=== PATIENT | female | born 1955 | race Caucasian/White ===

== ENCOUNTER → 2018-07-18 | Outpatient (CLI) | payer OTHER, MEDICARE ==
[~2018-07-18] MED LIST: AEC81 PO; ASPI-1146 PO; ATOR-2 PO; CARV12.511 PO; CLOP75TA32 PO; FAMO20TA8 PO; IOHEXOL-300 50 ML VIAL IV ONE; IOHEXOL-350 75 ML VIAL IV ONE; ISOS20TA7 PO; LEVO125T95 PO; LOSA1TAB7 PO; SOLI10TA PO
== END | disposition home or self-care (01) ==
LOC: RAH 09:35
PROVIDERS: ATTEND Internal Medicine Cardiovascular Disease
DX: K57.30 Diverticulosis of large intestine without perforation or abscess without bleeding (principal); N28.1 Cyst of kidney, acquired
CPT/HCPCS: 75635; Q9967 ×2

== ENCOUNTER 2019-05-03 10:49 | Emergency (ER) | payer OTHER, MEDICARE ==
[~2019-05-03 10:49] MED LIST changes: -IOHEXOL-300 50 ML VIAL IV ONE; -IOHEXOL-350 75 ML VIAL IV ONE
[2019-05-03] MEDS ORDERED: SUCRALFATE 1 GM TABLET ONE (13:30)
== END 2019-05-03 14:07 | disposition home or self-care (01) ==
LOC: EDH 10:49
DX: J44.9 Chronic obstructive pulmonary disease, unspecified (principal); I25.810 Atherosclerosis of coronary artery bypass graft(s) without angina pectoris; I10 Essential (primary) hypertension; E78.00 Pure hypercholesterolemia, unspecified; Z86.73 Personal history of transient ischemic attack (TIA), and cerebral infarction without residual deficits; Z90.49 Acquired absence of other specified parts of digestive tract; Z90.710 Acquired absence of both cervix and uterus; Z91.041 Radiographic dye allergy status; Z88.5 Allergy status to narcotic agent; Z88.8 Allergy status to other drugs, medicaments and biological substances
CPT/HCPCS: 71045; 78582; 84484; 93005; 99285; A9540; A9558

== ENCOUNTER 2020-08-04 11:08 | Observation (INO) | payer OTHER, MEDICARE ==
[~2020-08-04] VITALS: Ht 152.4 cm; Wt 93.0 kg
[~2020-08-04 11:08] MED LIST changes: -ISOS20TA7 PO; +ISOS20TA85 PO
[2020-08-04 11:48] LABS: BASOPHILS % (AUTO) 0.7 % (0.0-5.0); EOSINOPHILS % (AUTO) 1.9 % (0.0-8.0); HEMATOCRIT 41.4 % (36-48); LYMPHOCYTES % (AUTO) 27.6 % (21.0-51.0); MEAN CORPUSCULAR HEMOGLOBIN 28.6 pg (27.0-33.0); MEAN CORPUSCULAR HGB CONC 32.9 g/dL (32.0-36.0); MEAN CORPUSCULAR VOLUME 87.2 fL (79-99); MONOCYTES % (AUTO) 5.3 % (3.0-13.0); NEUTROPHILS % (AUTO) 64.1 % (40.0-77.0); PLATELET COUNT (AUTO) 192 K/uL (130-400); RED BLOOD CELL COUNT(AUTO) 4.75 MIL/uL (4.00-5.50); RED CELL DISTRIBUTION WIDTH 15.5 % (11.0-15.5); WHITE BLOOD COUNT (AUTO) 9.6 K/uL (4.8-10.8)
[2020-08-04 11:52] LABS: CREATININE 0.9 mg/dL (0.5-1.5); POTASSIUM 3.4 mmol/L (3.5-5.1)
[2020-08-04 11:56] LABS: BILIRUBIN,TOTAL 0.6 mg/dL (0.2-1.0); MAGNESIUM 1.2 mg/dL (1.80-2.40); TOTAL PROTEIN, SERUM 7.9 g/dL (6.0-8.3)
[2020-08-04] MEDS ORDERED: SODIUM CHLORIDE 0.9% 10 ML VIAL IVP SCH (12:00)
[2020-08-04] MEDS ORDERED: POTASSIUM CHLORIDE 20MEQ/100ML 100 ML IV PRN ×2 (12:00→12:30)
[2020-08-04] MEDS ORDERED: LIDOCAINE HCL-MPF 1% 2ML VIAL IJ PRN (12:00)
[2020-08-04] MEDS ORDERED: POTASSIUM CHLORIDE 10% ELIXIR 20 MEQ/15 ML UDCUP PO PRN (12:00)
[2020-08-04] MEDS ORDERED: GLUCAGON 1MG KIT 1 MG ML IM PRN (12:00)
[2020-08-04] MEDS ORDERED: DEXTROSE 50%-WATER 50 ML DISP.SYRIN IV PRN (12:00)
[2020-08-04 12:01] LABS: INR 1.02 (0.85-1.15); PROTHROMBIN TIME 11.1 SEC (9.6-11.6)
[2020-08-04 12:03] LABS: PARTIAL THROMBOPLASTIN TIME 27.1 SEC (26.3-35.5)
[2020-08-04] MEDS ORDERED: MAGNESIUM 2GM PREMIX 50ML 50 ML IV PRN (12:30)
[2020-08-04 12:41] LABS: B-TYPE NATRIURETIC PEPTIDE 23 pg/mL (0-100)
[2020-08-04 13:00] LABS: HEMOGLOBIN A1C 6.1 % (4.0-6.0)
[2020-08-04] MEDS ORDERED: MAGNESIUM 2GM PREMIX 50ML 50 ML IV ONE (13:53)
[2020-08-04] MEDS: INSULIN R PO SSI SQ SCH ×2 (16:30→20:15)
[2020-08-04 16:55] VITALS: BP 136/83
[2020-08-04] MEDS ORDERED: PANT40TA PO (18:31)
[2020-08-04] MEDS ORDERED: LORA10TA7 PO (18:31)
[2020-08-04] MEDS ORDERED: TIZA-194 PO (18:31)
[2020-08-04] MEDS ORDERED: ASCO500C18 PO (18:31)
[2020-08-04] MEDS ORDERED: LISI10TA24 PO (18:31)
[2020-08-04] MEDS ORDERED: ISOS30TA92 PO (18:31)
[2020-08-04] MEDS ORDERED: CYAN-35 PO (18:31)
[2020-08-04] MEDS ORDERED: NITR0.4T50 SL (18:31)
[2020-08-04] MEDS ORDERED: LEVO112C4 PO (18:31)
[2020-08-04] MEDS ORDERED: METF-444 PO (18:31)
[2020-08-04 18:35] LABS: CREATININE 0.9 mg/dL (0.5-1.5); MAGNESIUM 2.1 mg/dL (1.80-2.40); POTASSIUM 3.3 mmol/L (3.5-5.1)
[2020-08-04 19:56] VITALS: BP 124/79
[2020-08-04] MEDS: POTASSIUM CHLORIDE 20 MEQ ERTAB PO PRN ×2 (20:16→23:47)
[2020-08-04] MEDS: ATORVASTATIN CALCIUM 40 MG TABLET PO SCH (20:16)
[2020-08-04] MEDS: METOPROLOL TARTRATE 25 MG TAB PO SCH ×2 (20:16→20:39)
[2020-08-04 23:52] VITALS: BP 125/67
[2020-08-05] VITALS (7 sets, daily range): BP systolic 114–152; BP diastolic 81–101
[2020-08-05] MEDS: INSULIN R PO SSI SQ SCH ×4 (05:34→21:00)
[2020-08-05 05:40] LABS: BASOPHILS % (AUTO) 0.8 % (0.0-5.0); EOSINOPHILS % (AUTO) 2.2 % (0.0-8.0); HEMATOCRIT 39.8 % (36-48); LYMPHOCYTES % (AUTO) 34.4 % (21.0-51.0); MEAN CORPUSCULAR HEMOGLOBIN 28.3 pg (27.0-33.0); MEAN CORPUSCULAR HGB CONC 32.2 g/dL (32.0-36.0); MEAN CORPUSCULAR VOLUME 88.1 fL (79-99); MONOCYTES % (AUTO) 5.5 % (3.0-13.0); NEUTROPHILS % (AUTO) 56.6 % (40.0-77.0); PLATELET COUNT (AUTO) 172 K/uL (130-400); RED BLOOD CELL COUNT(AUTO) 4.52 MIL/uL (4.00-5.50); RED CELL DISTRIBUTION WIDTH 15.7 % (11.0-15.5); WHITE BLOOD COUNT (AUTO) 8.8 K/uL (4.8-10.8)
[2020-08-05] MEDS: LEVOTHYROXINE 112 MCG TABLET PO SCH (05:40)
[2020-08-05 06:03] LABS: CREATININE 0.9 mg/dL (0.5-1.5); MAGNESIUM 1.9 mg/dL (1.80-2.40); POTASSIUM 3.7 mmol/L (3.5-5.1)
[2020-08-05] MEDS: ASPIRIN 81 MG EC TAB PO SCH (08:55)
[2020-08-05] MEDS: PANTOPRAZOLE SODIUM 40 MG TABLET.DR PO SCH (08:55)
[2020-08-05] MEDS: METOPROLOL TARTRATE 25 MG TAB PO SCH ×2 (08:55→21:10)
[2020-08-05] MEDS: SOLIFENACIN SUCCINATE 10 MG PO SCH (08:58)
[2020-08-05] MEDS ORDERED: SOLIFENACIN SUCCINATE 10 MG PO SCH (09:00)
[2020-08-05] MEDS ORDERED: PREDNISONE 20 MG TABLET PO SCH (21:00)
[2020-08-05] MEDS: ATORVASTATIN CALCIUM 40 MG TABLET PO SCH (21:10)
[2020-08-06 01:26] VITALS: BP 156/88
[2020-08-06] MEDS: LEVOTHYROXINE 112 MCG TABLET PO SCH (04:25)
[2020-08-06] MEDS: INSULIN R PO SSI SQ SCH ×4 (05:55→20:17)
[2020-08-06] MEDS ORDERED: DiphenhydrAMINE HCL 50 MG/ML VIAL IV SCH (06:00)
[2020-08-06] MEDS ORDERED: METHYLPREDNISOLONE SOD SUCC 125MG/2ML VIAL IVP SCH (06:00)
[2020-08-06 06:07] VITALS: BP 141/85
[2020-08-06 08:12] VITALS: BP 135/87
[2020-08-06] MEDS: ASPIRIN 81 MG EC TAB PO SCH (08:41)
[2020-08-06] MEDS: PANTOPRAZOLE SODIUM 40 MG TABLET.DR PO SCH (08:41)
[2020-08-06] MEDS: METOPROLOL TARTRATE 25 MG TAB PO SCH ×2 (08:41→20:10)
[2020-08-06] MEDS: SOLIFENACIN SUCCINATE 10 MG PO SCH (08:42)
[2020-08-06] MEDS ORDERED: LIDOCAINE HCL 2% 20ML ONE (08:43)
[2020-08-06] MEDS ORDERED: SODIUM BICARB 50MEQ 50ML VIAL 50 ML ONE (08:43)
[2020-08-06 08:46] LABS: BASOPHILS % (AUTO) 0.2 % (0.0-5.0); EOSINOPHILS % (AUTO) 0.1 % (0.0-8.0); HEMATOCRIT 43.9 % (36-48); LYMPHOCYTES % (AUTO) 13.8 % (21.0-51.0); MEAN CORPUSCULAR HEMOGLOBIN 27.8 pg (27.0-33.0); MEAN CORPUSCULAR HGB CONC 32.3 g/dL (32.0-36.0); MEAN CORPUSCULAR VOLUME 85.9 fL (79-99); MONOCYTES % (AUTO) 0.5 % (3.0-13.0); NEUTROPHILS % (AUTO) 84.6 % (40.0-77.0); PLATELET COUNT (AUTO) 205 K/uL (130-400); RED BLOOD CELL COUNT(AUTO) 5.11 MIL/uL (4.00-5.50); RED CELL DISTRIBUTION WIDTH 15.3 % (11.0-15.5); WHITE BLOOD COUNT (AUTO) 10.4 K/uL (4.8-10.8)
[2020-08-06 08:59] LABS: CREATININE 0.8 mg/dL (0.5-1.5); POTASSIUM 4.2 mmol/L (3.5-5.1)
[2020-08-06] MEDS ORDERED: IOHEXOL-350 50ML VIAL IV ONE ×2 (08:59→10:31)
[2020-08-06] MEDS ORDERED: IOHEXOL 350 MG/ML 100ML INFUS..BTL IV ONE ×3 (08:59→10:58)
[2020-08-06 09:04] LABS: ALBUMIN 2.9 g/dL (3.5-5.0); BILIRUBIN,TOTAL 0.5 mg/dL (0.2-1.0); TOTAL PROTEIN, SERUM 8.3 g/dL (6.0-8.3)
[2020-08-06] MEDS ORDERED: MIDAZOLAM HCL 1 MG/ML 2ML VIAL ONE (09:17)
[2020-08-06] MEDS ORDERED: FENTANYL CITRATE PF 50 MCG/1 ML 2ML VIAL ONE (09:17)
[2020-08-06] MEDS ORDERED: LABETALOL HCL 5 MG/ML 20ML VIAL IV ONE (09:42)
[2020-08-06] MEDS ORDERED: BIVALIRUDIN 250 MG/VIAL IV ONE ×2 (09:52→10:42)
[2020-08-06] MEDS ORDERED: DEXTROSE 50%-WATER 50 ML DISP.SYRIN IV PRN (12:15)
[2020-08-06] MEDS ORDERED: SODIUM CHLORIDE 0.9% 1000ML 1,000 ML IV SCH (12:15)
[2020-08-06] MEDS ORDERED: GLUCAGON 1MG KIT 1 MG ML IM PRN (12:15)
[2020-08-06] MEDS ORDERED: RANO500T3 PO (12:24)
[2020-08-06 16:24] VITALS: BP 148/84
[2020-08-06 19:52] VITALS: BP 150/86
[2020-08-06] MEDS: ATORVASTATIN CALCIUM 40 MG TABLET PO SCH (20:10)
[2020-08-07 00:23] VITALS: BP 169/81
[2020-08-07 03:42] VITALS: BP 139/66
[2020-08-07] MEDS ORDERED: MORPHINE SULFATE 5 MG/ML VIAL IV PRN (04:45)
[2020-08-07] MEDS ORDERED: MORPHINE SULFATE 2 MG/ML 1ML SYG IV PRN (05:45)
[2020-08-07 05:47] LABS: HEMATOCRIT 38.8 % (36-48); MEAN CORPUSCULAR HGB CONC 32.7 g/dL (32.0-36.0); MEAN CORPUSCULAR VOLUME 85.7 fL (79-99); RED BLOOD CELL COUNT(AUTO) 4.53 MIL/uL (4.00-5.50); RED CELL DISTRIBUTION WIDTH 15.2 % (11.0-15.5); WHITE BLOOD COUNT (AUTO) 18.9 K/uL (4.8-10.8)
[2020-08-07] MEDS: INSULIN R PO SSI SQ SCH ×2 (06:24→11:30)
[2020-08-07] MEDS: LEVOTHYROXINE 112 MCG TABLET PO SCH (06:27)
[2020-08-07 06:34] LABS: CREATININE 0.9 mg/dL (0.5-1.5); POTASSIUM 3.8 mmol/L (3.5-5.1)
[2020-08-07 08:00] VITALS: BP 145/77
[2020-08-07] MEDS: SOLIFENACIN SUCCINATE 10 MG PO SCH (09:00)
[2020-08-07] MEDS: ASPIRIN 81 MG EC TAB PO SCH (09:30)
[2020-08-07] MEDS: PANTOPRAZOLE SODIUM 40 MG TABLET.DR PO SCH (09:30)
[2020-08-07] MEDS: METOPROLOL TARTRATE 25 MG TAB PO SCH (09:31)
[2020-08-07] MEDS ORDERED: CEFTRIAXONE SODIUM 1 GM IVP SCH (11:30)
[2020-08-07 12:00] VITALS: BP 145/96
== END 2020-08-07 14:00 | disposition home or self-care (01) ==
LOC: EDH 11:08 → INTOOBSV 11:09 → EDHIP 11:09 → 4BH 14:39
PROVIDERS: ADMIT Internal Medicine; ATTEND Internal Medicine
DX: I25.119 Atherosclerotic heart disease of native coronary artery with unspecified angina pectoris (principal); I77.1 Stricture of artery; R42 Dizziness and giddiness; E87.6 Hypokalemia; E83.42 Hypomagnesemia; I10 Essential (primary) hypertension; E03.9 Hypothyroidism, unspecified; E78.5 Hyperlipidemia, unspecified; G89.29 Other chronic pain; M54.9 Dorsalgia, unspecified; I95.9 Hypotension, unspecified; J44.9 Chronic obstructive pulmonary disease, unspecified; E66.9 Obesity, unspecified; E78.00 Pure hypercholesterolemia, unspecified; G47.30 Sleep apnea, unspecified; Z86.73 Personal history of transient ischemic attack (TIA), and cerebral infarction without residual deficits; Z95.1 Presence of aortocoronary bypass graft; Z95.5 Presence of coronary angioplasty implant and graft; Z79.82 Long term (current) use of aspirin; Z79.899 Other long term (current) drug therapy; Z91.041 Radiographic dye allergy status; Z68.41 Body mass index [BMI] 40.0-44.9, adult
CPT/HCPCS: 36415 ×4; 71045; 80048 ×2; 80053 ×2; 82948 ×12; 83036; 83735 ×3; 83880; 84443; 84484 ×3; 85025 ×3; 85027; 85610; 85730; 92920; 93005; 93306; 93356; 93459; 96361; 96372; 96374; 96375 ×2; 99285; C1760; C1769 ×6; C1887 ×9; C1894 ×3; G0378 ×70; J0583 ×2; J0696; J1200; J1644 ×2; J1815; J2250; J2930; J3010; J3475; J3490 ×3; Q9965 ×3; Q9967 ×4; 99156; 99157

== ENCOUNTER 2020-08-13 21:05 | Emergency (ER) | payer OTHER, MEDICARE ==
[~2020-08-13 21:05] MED LIST changes: +ASCO500C18 PO; -ASPI-1146 PO; -CLOP75TA32 PO; +CYAN-35 PO; -FAMO20TA8 PO; -ISOS20TA85 PO; +ISOS30TA92 PO; +LEVO112C4 PO; -LEVO125T95 PO; +LISI10TA24 PO; +LORA10TA7 PO; -LOSA1TAB7 PO; +METF-444 PO; +NITR0.4T50 SL; +PANT40TA PO; +TIZA-194 PO
[2020-08-13 21:13] LABS: BASOPHILS % (AUTO) 0.9 % (0.0-5.0); EOSINOPHILS % (AUTO) 2.1 % (0.0-8.0); HEMATOCRIT 37.7 % (36-48); MEAN CORPUSCULAR HGB CONC 32.4 g/dL (32.0-36.0); MEAN CORPUSCULAR VOLUME 86.5 fL (79-99); NEUTROPHILS % (AUTO) 58.5 % (40.0-77.0); PLATELET COUNT (AUTO) 214 K/uL (130-400); RED BLOOD CELL COUNT(AUTO) 4.36 MIL/uL (4.00-5.50); RED CELL DISTRIBUTION WIDTH 15.7 % (11.0-15.5); WHITE BLOOD COUNT (AUTO) 11.2 K/uL (4.8-10.8)
[2020-08-13] MEDS ORDERED: ASPIRIN 325 MG TABLET ONE (21:32)
[2020-08-13 21:33] LABS: POTASSIUM 3.9 mmol/L (3.5-5.1)
[2020-08-13 21:34] LABS: INR 1.05 (0.85-1.15); PROTHROMBIN TIME 11.4 SEC (9.6-11.6)
[2020-08-13 21:36] LABS: PARTIAL THROMBOPLASTIN TIME 25.7 SEC (26.3-35.5)
[2020-08-13 21:38] LABS: BILIRUBIN,TOTAL 0.6 mg/dL (0.2-1.0); TOTAL PROTEIN, SERUM 7.4 g/dL (6.0-8.3)
== END 2020-08-14 00:56 | disposition home or self-care (01) ==
LOC: EDH 21:05
DX: R06.00 Dyspnea, unspecified (principal); R06.09 Other forms of dyspnea; I25.10 Atherosclerotic heart disease of native coronary artery without angina pectoris; Z20.822 Contact with and (suspected) exposure to COVID-19; J44.9 Chronic obstructive pulmonary disease, unspecified; E78.00 Pure hypercholesterolemia, unspecified; I10 Essential (primary) hypertension; E03.9 Hypothyroidism, unspecified; Z90.49 Acquired absence of other specified parts of digestive tract; Z90.710 Acquired absence of both cervix and uterus; Z88.5 Allergy status to narcotic agent; Z91.041 Radiographic dye allergy status; Z88.6 Allergy status to analgesic agent; Z88.2 Allergy status to sulfonamides
CPT/HCPCS: 36415; 71045; 80053; 83690; 83880; 84484; 85025; 85610; 85730; 87426; 93005; 99285; U0003

== ENCOUNTER 2020-08-15 16:43 | Inpatient (IN) | payer OTHER, MEDICARE ==
[~2020-08-15] VITALS: Ht 152.4 cm; Wt 90.8 kg
[2020-08-15] MEDS ORDERED: NITROGLYCERIN 1GM OINT 1 INCH/1GM TD ONE (17:18)
[2020-08-15 19:34] LABS: BASOPHILS % (AUTO) 0.8 % (0.0-5.0); EOSINOPHILS % (AUTO) 1.6 % (0.0-8.0); HEMATOCRIT 38.5 % (36-48); LYMPHOCYTES % (AUTO) 29.9 % (21.0-51.0); MEAN CORPUSCULAR HEMOGLOBIN 28.6 pg (27.0-33.0); MEAN CORPUSCULAR HGB CONC 33.2 g/dL (32.0-36.0); MEAN CORPUSCULAR VOLUME 85.9 fL (79-99); MONOCYTES % (AUTO) 6.3 % (3.0-13.0); PLATELET COUNT (AUTO) 254 K/uL (130-400); RED BLOOD CELL COUNT(AUTO) 4.48 MIL/uL (4.00-5.50); WHITE BLOOD COUNT (AUTO) 11.6 K/uL (4.8-10.8)
[2020-08-15 19:47] LABS: CREATININE 0.9 mg/dL (0.5-1.5); INR 1.08 (0.85-1.15); POTASSIUM 3.7 mmol/L (3.5-5.1); PROTHROMBIN TIME 11.7 SEC (9.6-11.6)
[2020-08-15 19:49] LABS: PARTIAL THROMBOPLASTIN TIME 25.1 SEC (26.3-35.5)
[2020-08-15 19:51] LABS: BILIRUBIN,TOTAL 0.5 mg/dL (0.2-1.0); TOTAL PROTEIN, SERUM 7.6 g/dL (6.0-8.3)
[2020-08-15] MEDS ORDERED: LACTATED RINGERS 1000ML 1,000 ML IV SCH (22:00)
[2020-08-15] MEDS ORDERED: MAG/ALUM/SIMETH 30 ML UDCUP PO PRN (22:00)
[2020-08-15] MEDS ORDERED: LABETALOL 20MG SYG IV PRN (22:00)
[2020-08-15] MEDS ORDERED: ONDANSETRON 4MG INJ IV PRN (22:00)
[2020-08-15] MEDS ORDERED: DIPHENHYDRAMINE HCL 25 MG CAPSULE PO PRN (22:00)
[2020-08-15] MEDS ORDERED: GUAIFENESIN-DM 200/20 MG 10 ML PO PRN (22:00)
[2020-08-15] MEDS ORDERED: DiphenhydrAMINE HCL 50 MG/ML VIAL IV PRN (22:00)
[2020-08-15] MEDS ORDERED: NITROGLYCERIN 0.4 MG SL TAB SL PRN (22:00)
[2020-08-15 23:06] LABS: MAGNESIUM 1.5 mg/dL (1.80-2.40); PHOSPHORUS 2.4 mg/dL (2.5-4.9)
[2020-08-16] MEDS ORDERED: LACTATED RINGERS 1000ML 1,000 ML IV ONE (01:21)
[2020-08-16 01:56] LABS: CREATINE KINASE, TOTAL 73 U/L (21-232); MYOGLOBIN 34 ng/mL (10-92); TROPONIN I < 0.04 ng/mL (0.00-0.06)
[2020-08-16 06:14] LABS: BASOPHILS % (AUTO) 0.9 % (0.0-5.0); EOSINOPHILS % (AUTO) 1.6 % (0.0-8.0); HEMATOCRIT 36.1 % (36-48); LYMPHOCYTES % (AUTO) 32.3 % (21.0-51.0); MEAN CORPUSCULAR HEMOGLOBIN 28.4 pg (27.0-33.0); MEAN CORPUSCULAR VOLUME 86.2 fL (79-99); MONOCYTES % (AUTO) 6.9 % (3.0-13.0); NEUTROPHILS % (AUTO) 57.8 % (40.0-77.0); PLATELET COUNT (AUTO) 223 K/uL (130-400); RED BLOOD CELL COUNT(AUTO) 4.19 MIL/uL (4.00-5.50); RED CELL DISTRIBUTION WIDTH 15.9 % (11.0-15.5); WHITE BLOOD COUNT (AUTO) 9.5 K/uL (4.8-10.8)
[2020-08-16 06:29] LABS: ALBUMIN 2.8 g/dL (3.5-5.0); BILIRUBIN,TOTAL 0.5 mg/dL (0.2-1.0); CREATININE 0.8 mg/dL (0.5-1.5); POTASSIUM 3.6 mmol/L (3.5-5.1); TOTAL PROTEIN, SERUM 6.9 g/dL (6.0-8.3)
[2020-08-16] MEDS ORDERED: LEVOTHYROXINE 125 MCG TABLET PO SCH (06:30)
[2020-08-16 07:44] LABS: CREATINE KINASE, TOTAL 52 U/L (21-232); MYOGLOBIN 32 ng/mL (10-92); TROPONIN I < 0.04 ng/mL (0.00-0.06)
[2020-08-16] MEDS ORDERED: ASPIRIN 325 MG TABLET ONE (07:49)
[2020-08-16] MEDS ORDERED: ISOSORBIDE MONO 30MG SR TAB PO ONE (07:49)
[2020-08-16] MEDS ORDERED: LISINOPRIL 5 MG TABLET ONE (07:49)
[2020-08-16] MEDS ORDERED: CARVEDILOL 12.5 MG TABLET PO ONE (07:50)
[2020-08-16] MEDS ORDERED: ENOXAPARIN SODIUM 40 MG/0.4 ML SYRINGE SQ ONE (07:50)
[2020-08-16] MEDS ORDERED: FAMOTIDINE 20MG VIAL IV ONE (07:51)
[2020-08-16] MEDS ORDERED: MAGNESIUM 2GM PREMIX 50ML 50 ML IV PRN (08:00)
[2020-08-16] MEDS ORDERED: MAGNESIUM 2GM PREMIX 50ML 50 ML IV ONE (08:41)
[2020-08-16] MEDS: ENOXAPARIN SODIUM 40 MG/0.4 ML SYRINGE SQ SCH (09:00)
[2020-08-16] MEDS: RANOLAZINE 500 MG TAB.SR.12H PO SCH ×2 (09:00→21:54)
[2020-08-16] MEDS: CARVEDILOL 12.5 MG TABLET PO SCH ×2 (09:00→21:55)
[2020-08-16] MEDS ORDERED: FAMOTIDINE 20MG VIAL IV SCH (09:00)
[2020-08-16] MEDS: LISINOPRIL 10 MG TABLET PO SCH (09:00)
[2020-08-16] MEDS: ISOSORBIDE MONO 30MG SR TAB PO SCH (09:00)
[2020-08-16] MEDS ORDERED: ASPIRIN 325 MG TABLET PO SCH (09:00)
[2020-08-16] MEDS ORDERED: NITROGLYCERIN 0.4 MG SL TAB SL SCH (10:45)
[2020-08-16] MEDS ORDERED: PRASUGREL HCL 10 MG TABLET PO SCH (10:45)
[2020-08-16] MEDS ORDERED: TIZANIDINE HCL 2 MG TABLET PO PRN (10:45)
[2020-08-16] MEDS ORDERED: SOLU-MEDROL 125MG VIAL IVP PRN (10:45)
[2020-08-16] MEDS ORDERED: NON-FORMULARY MEDICATION 1 EACH (Atorvastatin Calcium 80 MG) PO SCH (10:45)
[2020-08-16] MEDS ORDERED: 0.9% NACL 500ML IV.SOLN 500 ML IV SCH (10:45)
[2020-08-16 11:03] LABS: INR 1.07 (0.85-1.15); PROTHROMBIN TIME 11.6 SEC (9.6-11.6)
[2020-08-16 11:04] LABS: PARTIAL THROMBOPLASTIN TIME 26.8 SEC (26.3-35.5)
[2020-08-16 13:10] VITALS: BP 105/67
[2020-08-16 17:45] VITALS: BP 134/78
[2020-08-16 20:34] VITALS: BP 130/79
[2020-08-16] MEDS ORDERED: CARVEDILOL 12.5 MG TABLET PO SCH (21:00)
[2020-08-16] MEDS: ATORVASTATIN 40 MG TABLET PO SCH (21:54)
[2020-08-16 23:33] VITALS: BP 131/76
[2020-08-17 04:15] VITALS: BP 127/76
[2020-08-17 05:13] LABS: BASOPHILS % (AUTO) 1.3 % (0.0-5.0); EOSINOPHILS % (AUTO) 1.5 % (0.0-8.0); HEMATOCRIT 34.4 % (36-48); LYMPHOCYTES % (AUTO) 36.9 % (21.0-51.0); MEAN CORPUSCULAR HEMOGLOBIN 28.3 pg (27.0-33.0); MEAN CORPUSCULAR HGB CONC 32.8 g/dL (32.0-36.0); MEAN CORPUSCULAR VOLUME 86.2 fL (79-99); MONOCYTES % (AUTO) 7.5 % (3.0-13.0); NEUTROPHILS % (AUTO) 52.5 % (40.0-77.0); PLATELET COUNT (AUTO) 197 K/uL (130-400); RED BLOOD CELL COUNT(AUTO) 3.99 MIL/uL (4.00-5.50); RED CELL DISTRIBUTION WIDTH 15.9 % (11.0-15.5); WHITE BLOOD COUNT (AUTO) 7.2 K/uL (4.8-10.8)
[2020-08-17 05:26] LABS: ALBUMIN 2.6 g/dL (3.5-5.0); BILIRUBIN,TOTAL 0.7 mg/dL (0.2-1.0); CREATININE 0.8 mg/dL (0.5-1.5); POTASSIUM 3.7 mmol/L (3.5-5.1); TOTAL PROTEIN, SERUM 6.5 g/dL (6.0-8.3)
[2020-08-17] MEDS: LEVOTHYROXINE 112 MCG TABLET PO SCH (06:14)
[2020-08-17 08:00] VITALS: BP 121/77
[2020-08-17] MEDS: PRASUGREL HCL 10 MG TABLET PO SCH (08:52)
[2020-08-17] MEDS: PANTOPRAZOLE 40 MG TAB DR PO SCH (08:52)
[2020-08-17] MEDS: CYANOCOBALAMIN (VITAMIN B-12) 1,000 MCG TABLET PO SCH (08:52)
[2020-08-17] MEDS: RANOLAZINE 500 MG TAB.SR.12H PO SCH ×2 (08:54→20:49)
[2020-08-17] MEDS: PREDNISONE 20 MG TABLET PO SCH (08:55)
[2020-08-17] MEDS: CARVEDILOL 12.5 MG TABLET PO SCH ×2 (08:55→20:52)
[2020-08-17] MEDS: ASCORBIC ACID 500 MG TAB PO SCH (08:56)
[2020-08-17] MEDS: LORATADINE 10 MG TABLET PO SCH (08:56)
[2020-08-17] MEDS: ASPIRIN 81 MG EC TAB PO SCH (08:56)
[2020-08-17] MEDS: ISOSORBIDE MONO 30MG SR TAB PO SCH (08:58)
[2020-08-17] MEDS: ENOXAPARIN SODIUM 40 MG/0.4 ML SYRINGE SQ SCH (08:59)
[2020-08-17] MEDS ORDERED: ISOSORBIDE MONO 30MG SR TAB PO SCH (09:00)
[2020-08-17] MEDS ORDERED: LISINOPRIL 10 MG TABLET PO SCH (09:00)
[2020-08-17] MEDS: LISINOPRIL 10 MG TABLET PO SCH (09:01)
[2020-08-17 12:00] VITALS: BP 133/56
[2020-08-17 16:00] VITALS: BP 111/71
[2020-08-17 19:28] VITALS: BP 112/74
[2020-08-17] MEDS: ATORVASTATIN 40 MG TABLET PO SCH (20:48)
[2020-08-17 23:10] VITALS: BP 115/60
[2020-08-18] VITALS (14 sets, daily range): BP systolic 104–155; BP diastolic 60–93
[2020-08-18] MEDS: ACETAMINOPHEN 325 MG TAB PO PRN ×3 (00:55→20:25)
[2020-08-18 05:15] LABS: BASOPHILS % (AUTO) 0.5 % (0.0-5.0); EOSINOPHILS % (AUTO) 0.2 % (0.0-8.0); HEMATOCRIT 34.6 % (36-48); LYMPHOCYTES % (AUTO) 22.6 % (21.0-51.0); MEAN CORPUSCULAR HGB CONC 32.9 g/dL (32.0-36.0); NEUTROPHILS % (AUTO) 69.1 % (40.0-77.0); PLATELET COUNT (AUTO) 213 K/uL (130-400); RED BLOOD CELL COUNT(AUTO) 4.07 MIL/uL (4.00-5.50); RED CELL DISTRIBUTION WIDTH 15.9 % (11.0-15.5); WHITE BLOOD COUNT (AUTO) 10.7 K/uL (4.8-10.8)
[2020-08-18 05:47] LABS: ALBUMIN 2.7 g/dL (3.5-5.0); BILIRUBIN,TOTAL 0.6 mg/dL (0.2-1.0); CREATININE 0.8 mg/dL (0.5-1.5); POTASSIUM 3.2 mmol/L (3.5-5.1); TOTAL PROTEIN, SERUM 6.8 g/dL (6.0-8.3)
[2020-08-18] MEDS: LEVOTHYROXINE 112 MCG TABLET PO SCH (06:21)
[2020-08-18] MEDS ORDERED: NICARDIPINE 25MG INJ IV ONE (07:25)
[2020-08-18] MEDS ORDERED: HEPARIN 10,000 UNIT/10ML (1,000 UNIT/ML) VIAL ONE (07:25)
[2020-08-18] MEDS ORDERED: NITROGLYCERIN 2 MG VIAL IV ONE (07:26)
[2020-08-18] MEDS ORDERED: MIDAZOLAM HCL 1 MG/ML 2ML VIAL ONE (07:26)
[2020-08-18] MEDS ORDERED: FENTANYL CITRATE PF 50 MCG/1 ML 2ML VIAL ONE (07:26)
[2020-08-18] MEDS ORDERED: IOHEXOL-350 75 ML VIAL IV ONE (07:26)
[2020-08-18] MEDS ORDERED: LIDOCAINE HCL 400MG/20ML VIAL ONE (07:26)
[2020-08-18] MEDS ORDERED: IOHEXOL 350 MG/ML 100ML INFUS..BTL IV ONE (07:26)
[2020-08-18] MEDS ORDERED: DiphenhydrAMINE HCL 50 MG/ML VIAL ONE (08:11)
[2020-08-18] MEDS ORDERED: SOLU-MEDROL 125MG VIAL ONE (08:11)
[2020-08-18] MEDS ORDERED: FAMOTIDINE 20MG VIAL IV ONE (08:16)
[2020-08-18] MEDS ORDERED: POTASSIUM CHLORIDE 20MEQ/100ML 100 ML IV ONE (08:17)
[2020-08-18] MEDS ORDERED: ASPIRIN 325MG EC TAB PO ONE (08:53)
[2020-08-18] MEDS ORDERED: PRASUGREL HCL 10 MG TABLET ONE (08:53)
[2020-08-18] MEDS: ASPIRIN 81 MG EC TAB PO SCH (09:00)
[2020-08-18] MEDS: LISINOPRIL 10 MG TABLET PO SCH (09:00)
[2020-08-18] MEDS: PANTOPRAZOLE 40 MG TAB DR PO SCH (09:00)
[2020-08-18] MEDS: LORATADINE 10 MG TABLET PO SCH (09:00)
[2020-08-18] MEDS: ENOXAPARIN SODIUM 40 MG/0.4 ML SYRINGE SQ SCH (09:00)
[2020-08-18] MEDS: PREDNISONE 20 MG TABLET PO SCH (09:00)
[2020-08-18] MEDS: PRASUGREL HCL 10 MG TABLET PO SCH (09:00)
[2020-08-18] MEDS: CYANOCOBALAMIN (VITAMIN B-12) 1,000 MCG TABLET PO SCH (09:00)
[2020-08-18] MEDS ORDERED: HYDRALAZINE 20MG/ML VIAL ONE (09:17)
[2020-08-18] MEDS ORDERED: ONDANSETRON 4MG INJ ONE (10:43)
[2020-08-18] MEDS ORDERED: 0.9%NACL 1000ML 1,000 ML IV SCH (11:00)
[2020-08-18] MEDS: ISOSORBIDE MONO 30MG SR TAB PO SCH (13:15)
[2020-08-18] MEDS: CARVEDILOL 12.5 MG TABLET PO SCH ×2 (13:16→20:23)
[2020-08-18] MEDS: ASCORBIC ACID 500 MG TAB PO SCH (13:18)
[2020-08-18] MEDS: RANOLAZINE 500 MG TAB.SR.12H PO SCH ×2 (13:23→20:23)
[2020-08-18] MEDS: ATORVASTATIN 40 MG TABLET PO SCH (20:22)
[2020-08-19] MEDS ORDERED: KETOROLAC 30MG VIAL (30MG/ML) ONE (02:25)
[2020-08-19 02:55] LABS: HEMATOCRIT 30.1 % (36-48); MEAN CORPUSCULAR HEMOGLOBIN 28.4 pg (27.0-33.0); MEAN CORPUSCULAR HGB CONC 32.6 g/dL (32.0-36.0); MEAN CORPUSCULAR VOLUME 87.2 fL (79-99); RED BLOOD CELL COUNT(AUTO) 3.45 MIL/uL (4.00-5.50); RED CELL DISTRIBUTION WIDTH 16.3 % (11.0-15.5)
[2020-08-19 03:04] LABS: POTASSIUM 3.9 mmol/L (3.5-5.1)
[2020-08-19] MEDS: KETOROLAC 30MG VIAL (30MG/ML) IV SCH (04:01)
[2020-08-19 04:06] VITALS: BP 138/74
[2020-08-19] MEDS ORDERED: HYDROMORPHONE 0.5 MG SYG (0.5MG/0.5ML) ONE (04:16)
[2020-08-19] MEDS: LACTULOSE 20 GM/30 ML UDCUP PO PRN ×2 (04:18→17:23)
[2020-08-19] MEDS: LEVOTHYROXINE 112 MCG TABLET PO SCH (06:52)
[2020-08-19 07:52] VITALS: BP 129/83
[2020-08-19] MEDS: CARVEDILOL 12.5 MG TABLET PO SCH (08:56)
[2020-08-19] MEDS: ASPIRIN 81 MG EC TAB PO SCH (08:56)
[2020-08-19] MEDS: PANTOPRAZOLE 40 MG TAB DR PO SCH (08:57)
[2020-08-19] MEDS: RANOLAZINE 500 MG TAB.SR.12H PO SCH ×2 (08:57→22:16)
[2020-08-19] MEDS: ISOSORBIDE MONO 30MG SR TAB PO SCH (08:57)
[2020-08-19] MEDS: LISINOPRIL 10 MG TABLET PO SCH (08:57)
[2020-08-19] MEDS: ASCORBIC ACID 500 MG TAB PO SCH (08:57)
[2020-08-19] MEDS: LORATADINE 10 MG TABLET PO SCH (08:57)
[2020-08-19] MEDS: PREDNISONE 20 MG TABLET PO SCH (08:57)
[2020-08-19] MEDS: CYANOCOBALAMIN (VITAMIN B-12) 1,000 MCG TABLET PO SCH (08:57)
[2020-08-19] MEDS: PRASUGREL HCL 10 MG TABLET PO SCH (08:57)
[2020-08-19] MEDS: ENOXAPARIN SODIUM 40 MG/0.4 ML SYRINGE SQ SCH (08:58)
[2020-08-19] MEDS: HYDROMORPHONE 2 MG VIAL (2MG/ML) IVP PRN ×2 (10:58→22:17)
[2020-08-19 11:17] VITALS: BP 117/77
[2020-08-19] MEDS ORDERED: KETOROLAC 15MG/ML VIAL (15MG/ML) IV PRN (16:15)
[2020-08-19 16:25] VITALS: BP 137/89
[2020-08-19 20:00] VITALS: BP 115/75
[2020-08-19] MEDS: ATORVASTATIN 40 MG TABLET PO SCH (22:15)
[2020-08-19] MEDS: CEFTRIAXONE 1G VIAL IVP SCH (22:16)
[2020-08-19 23:00] LABS: APPEARANCE,URINE Cloudy (CLEAR); BILIRUBIN,URINE Negative (NEGATIVE); COLOR,URINE Dark Yellow (YELLOW); GLUCOSE, URINE (UA) Negative (NEGATIVE); KETONES,URINE Negative (NEGATIVE); LEUKOCYTE ESTERASE ,URINE Negative (NEGATIVE); NITRATE,URINE Negative (NEGATIVE); OCCULT BLOOD,URINE Negative (NEGATIVE); PROTEIN,URINE Negative (NEGATIVE)
[2020-08-19 23:16] LABS: BACTERIA,URINE Many /HPF (None Seen); HYALINE CASTS, URINE 0-1 /LPF (0-1 /LPF); MUCUS,URINE Few LPF (None Seen); RBC,URINE 0-1 /HPF (0-1); SQUAMOUS EPITHELIAL CELL,UR 0-2 /HPF (0-2)
[2020-08-20] VITALS: BP 110/77
[2020-08-20] MEDS: LACTULOSE 20 GM/30 ML UDCUP PO PRN (00:55)
[2020-08-20 04:00] VITALS: BP 109/74
[2020-08-20 09:09] LABS: BASOPHILS % (AUTO) 0.3 % (0.0-5.0); EOSINOPHILS % (AUTO) 0.1 % (0.0-8.0); HEMATOCRIT 22.8 % (36-48); LYMPHOCYTES % (AUTO) 17.2 % (21.0-51.0); MEAN CORPUSCULAR HEMOGLOBIN 28.7 pg (27.0-33.0); MEAN CORPUSCULAR HGB CONC 32.9 g/dL (32.0-36.0); MEAN CORPUSCULAR VOLUME 87.4 fL (79-99); MONOCYTES % (AUTO) 4.5 % (3.0-13.0); NEUTROPHILS % (AUTO) 77.4 % (40.0-77.0); PLATELET COUNT (AUTO) 202 K/uL (130-400); RED BLOOD CELL COUNT(AUTO) 2.61 MIL/uL (4.00-5.50); RED CELL DISTRIBUTION WIDTH 16.3 % (11.0-15.5); WHITE BLOOD COUNT (AUTO) 14.8 K/uL (4.8-10.8)
[2020-08-20 09:23] LABS: POTASSIUM 3.5 mmol/L (3.5-5.1)
[2020-08-20 09:28] LABS: ALBUMIN 2.6 g/dL (3.5-5.0); BILIRUBIN,TOTAL 0.4 mg/dL (0.2-1.0); TOTAL PROTEIN, SERUM 6.3 g/dL (6.0-8.3)
[2020-08-20] MEDS: ENOXAPARIN SODIUM 40 MG/0.4 ML SYRINGE SQ SCH ×2 (09:54→10:03)
[2020-08-20] MEDS: ASCORBIC ACID 500 MG TAB PO SCH ×2 (09:54→10:01)
[2020-08-20] MEDS: ISOSORBIDE MONO 30MG SR TAB PO SCH ×2 (09:55→10:01)
[2020-08-20] MEDS: ASPIRIN 81 MG EC TAB PO SCH ×2 (09:56→09:59)
[2020-08-20] MEDS: RANOLAZINE 500 MG TAB.SR.12H PO SCH ×2 (09:56→10:01)
[2020-08-20] MEDS: PRASUGREL HCL 10 MG TABLET PO SCH ×2 (09:57→10:00)
[2020-08-20] MEDS: CYANOCOBALAMIN (VITAMIN B-12) 1,000 MCG TABLET PO SCH ×2 (09:57→10:00)
[2020-08-20] MEDS: LORATADINE 10 MG TABLET PO SCH ×2 (09:57→10:01)
[2020-08-20] MEDS: LISINOPRIL 10 MG TABLET PO SCH ×2 (09:58→10:02)
[2020-08-20] MEDS: CARVEDILOL 25 MG TABLET PO SCH ×3 (09:59→21:00)
[2020-08-20] MEDS: LEVOTHYROXINE 112 MCG TABLET PO SCH (10:00)
[2020-08-20] MEDS: CEFTRIAXONE 1G VIAL IVP SCH ×2 (10:03→23:17)
[2020-08-20 12:00] VITALS: BP 91/41
[2020-08-20 16:00] VITALS: BP 96/48
[2020-08-20] MEDS: PANTOPRAZOLE 40 MG TAB DR PO SCH (17:44)
[2020-08-20] MEDS: KETOROLAC 30MG VIAL (30MG/ML) IV SCH ×2 (19:30→23:28)
[2020-08-20 20:00] VITALS: BP 74/40
[2020-08-20 22:00] VITALS: BP 92/45
[2020-08-20] MEDS: ATORVASTATIN 40 MG TABLET PO SCH (23:17)
[2020-08-21] VITALS (13 sets, daily range): BP systolic 97–153; BP diastolic 53–87
[2020-08-21 05:33] LABS: ALBUMIN 2.1 g/dL (3.5-5.0); BILIRUBIN,TOTAL 0.3 mg/dL (0.2-1.0); CREATININE 0.7 mg/dL (0.5-1.5); POTASSIUM 3.4 mmol/L (3.5-5.1); TOTAL PROTEIN, SERUM 5.2 g/dL (6.0-8.3)
[2020-08-21 06:20] LABS: BASOPHILS % (AUTO) 0.3 % (0.0-5.0); EOSINOPHILS % (AUTO) 0.9 % (0.0-8.0); MEAN CORPUSCULAR HEMOGLOBIN 28.1 pg (27.0-33.0); MEAN CORPUSCULAR HGB CONC 32.2 g/dL (32.0-36.0); MEAN CORPUSCULAR VOLUME 87.2 fL (79-99); MONOCYTES % (AUTO) 6.5 % (3.0-13.0); NEUTROPHILS % (AUTO) 58.7 % (40.0-77.0); PLATELET COUNT (AUTO) 138 K/uL (130-400); RED BLOOD CELL COUNT(AUTO) 1.96 MIL/uL (4.00-5.50); RED CELL DISTRIBUTION WIDTH 16.5 % (11.0-15.5); WHITE BLOOD COUNT (AUTO) 9.3 K/uL (4.8-10.8)
[2020-08-21] MEDS: LEVOTHYROXINE 112 MCG TABLET PO SCH (06:33)
[2020-08-21] MEDS: PANTOPRAZOLE 40 MG TAB DR PO SCH (06:33)
[2020-08-21 06:43] LABS: HEMATOCRIT 17.1 % (36-48)
[2020-08-21] MEDS: RANOLAZINE 500 MG TAB.SR.12H PO SCH ×2 (12:14→20:55)
[2020-08-21] MEDS: CARVEDILOL 25 MG TABLET PO SCH (12:14)
[2020-08-21 12:15] LABS: HEMATOCRIT 22.3 % (36-48)
[2020-08-21] MEDS: CEFTRIAXONE 1G VIAL IVP SCH ×2 (12:15→20:40)
[2020-08-21] MEDS: 0.9%NACL 1000ML 1,000 ML IV SCH ×2 (12:50→22:03)
[2020-08-21] MEDS ORDERED: SOLU-MEDROL 125MG VIAL IVP STA (12:53)
[2020-08-21] MEDS ORDERED: IOHEXOL 350 MG/ML 100ML INFUS..BTL IV ONE (13:01)
[2020-08-21] MEDS ORDERED: DiphenhydrAMINE HCL 50 MG/ML VIAL IV SCH (13:53)
[2020-08-21 19:27] LABS: HEMATOCRIT 26.9 % (36-48); MEAN CORPUSCULAR HEMOGLOBIN 29.1 pg (27.0-33.0); MEAN CORPUSCULAR HGB CONC 33.5 g/dL (32.0-36.0); MEAN CORPUSCULAR VOLUME 87.1 fL (79-99); RED BLOOD CELL COUNT(AUTO) 3.09 MIL/uL (4.00-5.50); RED CELL DISTRIBUTION WIDTH 15.3 % (11.0-15.5); WHITE BLOOD COUNT (AUTO) 9.1 K/uL (4.8-10.8)
[2020-08-21 19:45] LABS: INR 1.05 (0.85-1.15); PROTHROMBIN TIME 11.4 SEC (9.6-11.6)
[2020-08-21 19:46] LABS: PARTIAL THROMBOPLASTIN TIME 22.8 SEC (26.3-35.5)
[2020-08-21 20:10] LABS: TROPONIN I 0.13 ng/mL (0.00-0.06)
[2020-08-21] MEDS: ATORVASTATIN 40 MG TABLET PO SCH (20:40)
[2020-08-21] MEDS ORDERED: METOPROLOL TARTRATE 1 MG/ML 5ML VIAL IV PRN (22:00)
[2020-08-22] VITALS (18 sets, daily range): BP systolic 133–169; BP diastolic 50–117
[2020-08-22 00:42] LABS: BASOPHILS % (AUTO) 0.5 % (0.0-5.0); EOSINOPHILS % (AUTO) 1.2 % (0.0-8.0); HEMATOCRIT 24.8 % (36-48); LYMPHOCYTES % (AUTO) 29.1 % (21.0-51.0); MEAN CORPUSCULAR HEMOGLOBIN 29.4 pg (27.0-33.0); MEAN CORPUSCULAR HGB CONC 34.3 g/dL (32.0-36.0); MEAN CORPUSCULAR VOLUME 85.8 fL (79-99); MONOCYTES % (AUTO) 6.7 % (3.0-13.0); NEUTROPHILS % (AUTO) 61.8 % (40.0-77.0); PLATELET COUNT (AUTO) 139 K/uL (130-400); RED BLOOD CELL COUNT(AUTO) 2.89 MIL/uL (4.00-5.50); RED CELL DISTRIBUTION WIDTH 15.1 % (11.0-15.5); WHITE BLOOD COUNT (AUTO) 8.4 K/uL (4.8-10.8)
[2020-08-22 00:55] LABS: INR 1.07 (0.85-1.15); PROTHROMBIN TIME 11.6 SEC (9.6-11.6)
[2020-08-22 00:57] LABS: PARTIAL THROMBOPLASTIN TIME 23.6 SEC (26.3-35.5)
[2020-08-22 01:07] LABS: TROPONIN I 0.18 ng/mL (0.00-0.06)
[2020-08-22] MEDS: PANTOPRAZOLE 40 MG TAB DR PO SCH (06:07)
[2020-08-22] MEDS: LEVOTHYROXINE 112 MCG TABLET PO SCH (06:07)
[2020-08-22 06:28] LABS: HEMATOCRIT 25.5 % (36-48)
[2020-08-22 06:44] LABS: INR 1.07 (0.85-1.15); PROTHROMBIN TIME 11.6 SEC (9.6-11.6)
[2020-08-22 06:46] LABS: PARTIAL THROMBOPLASTIN TIME 24.1 SEC (26.3-35.5)
[2020-08-22 06:59] LABS: ALBUMIN 2.3 g/dL (3.5-5.0); BILIRUBIN,TOTAL 0.5 mg/dL (0.2-1.0); CREATININE 0.5 mg/dL (0.5-1.5); POTASSIUM 3.3 mmol/L (3.5-5.1); TOTAL PROTEIN, SERUM 5.7 g/dL (6.0-8.3); TROPONIN I 0.25 ng/mL (0.00-0.06)
[2020-08-22] MEDS: CYANOCOBALAMIN (VITAMIN B-12) 1,000 MCG TABLET PO SCH (08:27)
[2020-08-22] MEDS: LORATADINE 10 MG TABLET PO SCH (08:27)
[2020-08-22] MEDS: ASCORBIC ACID 500 MG TAB PO SCH (08:27)
[2020-08-22] MEDS: LACTULOSE 20 GM/30 ML UDCUP PO PRN (08:27)
[2020-08-22] MEDS: ACETAMINOPHEN 325 MG TAB PO PRN ×2 (08:30→20:19)
[2020-08-22] MEDS: CEFTRIAXONE 1G VIAL IVP SCH ×2 (08:30→20:18)
[2020-08-22] MEDS: CARVEDILOL 6.25 MG TABLET PO SCH ×2 (08:36→20:19)
[2020-08-22] MEDS: RANOLAZINE 500 MG TAB.SR.12H PO SCH ×2 (09:08→20:19)
[2020-08-22] MEDS ORDERED: KCL 20 MEQ ERTAB PO PRN (12:15)
[2020-08-22] MEDS ORDERED: LIDOCAINE HCL-MPF 1% 2ML VIAL IV PRN (12:15)
[2020-08-22] MEDS ORDERED: POTASSIUM CHLORIDE 20MEQ/100ML 100 ML IV PRN (12:15)
[2020-08-22] MEDS ORDERED: MAGNESIUM 2GM PREMIX 50ML 50 ML IV PRN (12:15)
[2020-08-22] MEDS ORDERED: POTASSIUM CHLORIDE 10% ELIXIR 20 MEQ/15 ML UDCUP PO PRN (12:15)
[2020-08-22] MEDS ORDERED: POTASSIUM CHLORIDE 10% ELIXIR 20 MEQ/15 ML UDCUP ONE (12:26)
[2020-08-22 12:32] LABS: HEMATOCRIT 27.9 % (36-48); MEAN CORPUSCULAR HEMOGLOBIN 29.2 pg (27.0-33.0); MEAN CORPUSCULAR HGB CONC 33.3 g/dL (32.0-36.0); MEAN CORPUSCULAR VOLUME 87.5 fL (79-99); RED BLOOD CELL COUNT(AUTO) 3.19 MIL/uL (4.00-5.50); RED CELL DISTRIBUTION WIDTH 15.6 % (11.0-15.5); WHITE BLOOD COUNT (AUTO) 8.1 K/uL (4.8-10.8)
[2020-08-22 12:47] LABS: INR 1.08 (0.85-1.15); PROTHROMBIN TIME 11.7 SEC (9.6-11.6)
[2020-08-22 12:48] LABS: PARTIAL THROMBOPLASTIN TIME 23.3 SEC (26.3-35.5)
[2020-08-22 18:10] LABS: HEMATOCRIT 28.4 % (36-48)
[2020-08-22 18:24] LABS: INR 1.16 (0.85-1.15); PROTHROMBIN TIME 12.5 SEC (9.6-11.6)
[2020-08-22 18:25] LABS: PARTIAL THROMBOPLASTIN TIME 28.6 SEC (26.3-35.5)
[2020-08-22] MEDS: ATORVASTATIN 40 MG TABLET PO SCH (20:18)
[2020-08-23] VITALS: BP 146/81
[2020-08-23 00:51] LABS: HEMATOCRIT 27.1 % (36-48); MEAN CORPUSCULAR HEMOGLOBIN 29.1 pg (27.0-33.0); MEAN CORPUSCULAR HGB CONC 33.9 g/dL (32.0-36.0); MEAN CORPUSCULAR VOLUME 85.8 fL (79-99); RED BLOOD CELL COUNT(AUTO) 3.16 MIL/uL (4.00-5.50); RED CELL DISTRIBUTION WIDTH 15.6 % (11.0-15.5); WHITE BLOOD COUNT (AUTO) 8.4 K/uL (4.8-10.8)
[2020-08-23 04:00] VITALS: BP 153/82
[2020-08-23 05:55] LABS: BASOPHILS % (AUTO) 0.9 % (0.0-5.0); HEMATOCRIT 28.3 % (36-48); LYMPHOCYTES % (AUTO) 25.6 % (21.0-51.0); MEAN CORPUSCULAR HEMOGLOBIN 28.7 pg (27.0-33.0); MEAN CORPUSCULAR HGB CONC 33.2 g/dL (32.0-36.0); MEAN CORPUSCULAR VOLUME 86.5 fL (79-99); MONOCYTES % (AUTO) 6.9 % (3.0-13.0); NEUTROPHILS % (AUTO) 63.6 % (40.0-77.0); PLATELET COUNT (AUTO) 170 K/uL (130-400); RED BLOOD CELL COUNT(AUTO) 3.27 MIL/uL (4.00-5.50); RED CELL DISTRIBUTION WIDTH 15.6 % (11.0-15.5)
[2020-08-23] MEDS: LEVOTHYROXINE 112 MCG TABLET PO SCH (05:59)
[2020-08-23 06:15] LABS: ALBUMIN 2.4 g/dL (3.5-5.0); CREATININE 0.6 mg/dL (0.5-1.5); POTASSIUM 3.8 mmol/L (3.5-5.1)
[2020-08-23 08:01] VITALS: BP 157/89
[2020-08-23] MEDS: CYANOCOBALAMIN (VITAMIN B-12) 1,000 MCG TABLET PO SCH (08:51)
[2020-08-23] MEDS: CARVEDILOL 6.25 MG TABLET PO SCH ×2 (08:51→21:39)
[2020-08-23] MEDS: ASCORBIC ACID 500 MG TAB PO SCH (08:51)
[2020-08-23] MEDS: RANOLAZINE 500 MG TAB.SR.12H PO SCH ×2 (08:52→21:38)
[2020-08-23] MEDS: LORATADINE 10 MG TABLET PO SCH (08:52)
[2020-08-23] MEDS: ACETAMINOPHEN 325 MG TAB PO PRN ×2 (08:53→21:45)
[2020-08-23] MEDS: CEFTRIAXONE 1G VIAL IVP SCH ×2 (08:54→21:40)
[2020-08-23] MEDS: PANTOPRAZOLE 40 MG TAB DR PO SCH (09:11)
[2020-08-23 12:09] VITALS: BP 120/67
[2020-08-23] MEDS ORDERED: MAGNESIUM 2GM PREMIX 50ML 50 ML IV SCH (15:15)
[2020-08-23 16:07] VITALS: BP 147/97
[2020-08-23] MEDS: ASPIRIN 81MG CHEW TAB PO SCH (18:13)
[2020-08-23 20:00] VITALS: BP 165/87
[2020-08-23] MEDS: ATORVASTATIN 40 MG TABLET PO SCH (21:39)
[2020-08-24] VITALS: BP 165/87
[2020-08-24 04:00] VITALS: BP 151/75
[2020-08-24 04:28] LABS: BASOPHILS % (AUTO) 0.6 % (0.0-5.0); HEMATOCRIT 28.6 % (36-48); MEAN CORPUSCULAR HEMOGLOBIN 29.7 pg (27.0-33.0); MEAN CORPUSCULAR HGB CONC 34.3 g/dL (32.0-36.0); MEAN CORPUSCULAR VOLUME 86.7 fL (79-99); NEUTROPHILS % (AUTO) 67.8 % (40.0-77.0); PLATELET COUNT (AUTO) 183 K/uL (130-400); RED CELL DISTRIBUTION WIDTH 15.7 % (11.0-15.5)
[2020-08-24 04:37] LABS: INR 1.15 (0.85-1.15); PROTHROMBIN TIME 12.4 SEC (9.6-11.6)
[2020-08-24 04:54] LABS: ALBUMIN 2.4 g/dL (3.5-5.0); BILIRUBIN,TOTAL 1.2 mg/dL (0.2-1.0); CREATININE 0.8 mg/dL (0.5-1.5); TOTAL PROTEIN, SERUM 6.1 g/dL (6.0-8.3)
[2020-08-24] MEDS: PANTOPRAZOLE 40 MG TAB DR PO SCH (05:28)
[2020-08-24] MEDS: LEVOTHYROXINE 112 MCG TABLET PO SCH (05:28)
[2020-08-24] MEDS: ACETAMINOPHEN 325 MG TAB PO PRN ×2 (05:30→11:13)
[2020-08-24 08:05] VITALS: BP 160/90
[2020-08-24] MEDS ORDERED: Nitroglycerin 0.4MG Sl Tab SL (09:36)
[2020-08-24] MEDS ORDERED: ASPI-1005 PO (09:36)
[2020-08-24] MEDS ORDERED: RANO500T2 PO (09:36)
[2020-08-24] MEDS ORDERED: ATOR40TA69 PO (09:36)
[2020-08-24] MEDS ORDERED: CARV6.2579 PO (09:58)
[2020-08-24] MEDS: CEFTRIAXONE 1G VIAL IVP SCH (10:50)
[2020-08-24] MEDS: LORATADINE 10 MG TABLET PO SCH (10:51)
[2020-08-24] MEDS: ASPIRIN 81MG CHEW TAB PO SCH (10:51)
[2020-08-24] MEDS: RANOLAZINE 500 MG TAB.SR.12H PO SCH (10:52)
[2020-08-24] MEDS: ASCORBIC ACID 500 MG TAB PO SCH (10:52)
[2020-08-24] MEDS: CYANOCOBALAMIN (VITAMIN B-12) 1,000 MCG TABLET PO SCH (10:59)
[2020-08-24 12:22] VITALS: BP 146/80
[2020-08-24 16:20] VITALS: BP 129/79
[2020-08-24] MEDS ORDERED: CARVEDILOL 6.25 MG TABLET PO SCH (21:00)
[2020-11-09] MEDS ORDERED: LISI10TA24 PO (23:53)
[2020-11-09] MEDS ORDERED: CARV12.511 PO (23:53)
[2020-11-10] MEDS ORDERED: ATOR40TA71 PO (00:52)
[2020-11-10] MEDS ORDERED: POTA-79 PO (18:25)
[2020-11-10] MEDS ORDERED: FURO10SO PO (18:25)
[2020-11-12] MEDS ORDERED: AMOX-426 PO (13:09)
== END 2020-08-24 17:35 | disposition home or self-care (01) | DRG 286 ==
LOC: EDH 16:43 → EDHIP 21:53 → 4BH 08-16 11:54 → 2CH 08-21 14:22 → 4BH 08-22 16:05
PROVIDERS: ADMIT Family Medicine; ATTEND Family Medicine
PROC: 4A023N7 Measurement of Cardiac Sampling and Pressure, Left Heart, Percutaneous Approach (ICD-10-PCS; 2020-08-19)
PROC: B2111ZZ Fluoroscopy of Multiple Coronary Arteries using Low Osmolar Contrast (ICD-10-PCS; 2020-08-19)
PROC: 02JA3ZZ Inspection of Heart, Percutaneous Approach (ICD-10-PCS; 2020-08-19)
PROC: 30233N1 Transfusion of Nonautologous Red Blood Cells into Peripheral Vein, Percutaneous Approach (ICD-10-PCS; principal; 2020-08-21)
DX: I25.110 Atherosclerotic heart disease of native coronary artery with unstable angina pectoris (principal); R57.1 Hypovolemic shock; R57.8 Other shock; K66.1 Hemoperitoneum; I24.9 Acute ischemic heart disease, unspecified; D62 Acute posthemorrhagic anemia; N13.30 Unspecified hydronephrosis; I97.630 Postprocedural hematoma of a circulatory system organ or structure following a cardiac catheterization; E66.9 Obesity, unspecified; E11.9 Type 2 diabetes mellitus without complications; I10 Essential (primary) hypertension; M79.89 Other specified soft tissue disorders; B96.20 Unspecified Escherichia coli [E. coli] as the cause of diseases classified elsewhere; D72.829 Elevated white blood cell count, unspecified; S30.1XXA Contusion of abdominal wall, initial encounter; G89.29 Other chronic pain; K59.00 Constipation, unspecified; E03.9 Hypothyroidism, unspecified; E78.5 Hyperlipidemia, unspecified; F17.210 Nicotine dependence, cigarettes, uncomplicated; I77.1 Stricture of artery; G47.33 Obstructive sleep apnea (adult) (pediatric); Z20.822 Contact with and (suspected) exposure to COVID-19; Y93.89 Activity, other specified; Y92.89 Other specified places as the place of occurrence of the external cause; Y99.8 Other external cause status; Z68.39 Body mass index [BMI] 39.0-39.9, adult; Z95.1 Presence of aortocoronary bypass graft; Z95.5 Presence of coronary angioplasty implant and graft; Z91.041 Radiographic dye allergy status; Z90.710 Acquired absence of both cervix and uterus; Z79.82 Long term (current) use of aspirin; Z79.899 Other long term (current) drug therapy; Z82.3 Family history of stroke; Z82.5 Family history of asthma and other chronic lower respiratory diseases; Z83.3 Family history of diabetes mellitus; Z80.49 Family history of malignant neoplasm of other genital organs; Z82.49 Family history of ischemic heart disease and other diseases of the circulatory system; Y84.0 Cardiac catheterization as the cause of abnormal reaction of the patient, or of later complication, without mention of misadventure at the time of the procedure; Y71.3 Surgical instruments, materials and cardiovascular devices (including sutures) associated with adverse incidents
CPT/HCPCS: 36415; 36430; 71045; 74174; 74176; 76770; 76882; 80048; 80053; 81001; 82550; 82948; 83690; 83735; 83874; 83880; 84100; 84484; 85014; 85018; 85025; 85027; 85347; 85378; 85384; 85610; 85730; 86850; 86900; 86901; 86923; 87040; 87077; 87088; 87186; 87426; 92920; 93005; 93970; 97039; 99156; 99157; A4344; C1769; C1894; C9600; G0378; J0360; J0696; J1170; J1200; J1644; J1650; J1885; J2250; J2405; J2930; J3010; J3475; J3480; J3490; J7040; J7120; P9016; Q9967; U0003

== ENCOUNTER 2020-09-20 09:49 | Inpatient (IN) | payer OTHER, MEDICARE ==
[~2020-09-20] VITALS: Ht 152.4 cm; Wt 87.1 kg
[2020-09-20] MEDS: CARVEDILOL 12.5 MG TABLET PO SCH (02:00)
[2020-09-20 10:23] LABS: APPEARANCE,URINE Cloudy (CLEAR); BILIRUBIN,URINE Negative (NEGATIVE); COLOR,URINE Yellow (YELLOW); GLUCOSE, URINE (UA) Negative (NEGATIVE); KETONES,URINE Negative (NEGATIVE); LEUKOCYTE ESTERASE ,URINE Large (NEGATIVE); NITRATE,URINE Negative (NEGATIVE); OCCULT BLOOD,URINE Negative (NEGATIVE); PH,URINE 5.5 (5.0-8.0); PROTEIN,URINE Negative (NEGATIVE)
[2020-09-20 10:27] LABS: BASOPHILS % (AUTO) 1.1 % (0.0-5.0); EOSINOPHILS % (AUTO) 2.1 % (0.0-8.0); HEMATOCRIT 36.7 % (36-48); MEAN CORPUSCULAR HEMOGLOBIN 30.9 pg (27.0-33.0); MEAN CORPUSCULAR VOLUME 93.9 fL (79-99); MONOCYTES % (AUTO) 7.9 % (3.0-13.0); NEUTROPHILS % (AUTO) 58.3 % (40.0-77.0); PLATELET COUNT (AUTO) 179 K/uL (130-400); RED BLOOD CELL COUNT(AUTO) 3.91 MIL/uL (4.00-5.50); RED CELL DISTRIBUTION WIDTH 18.2 % (11.0-15.5); WHITE BLOOD COUNT (AUTO) 5.3 K/uL (4.8-10.8)
[2020-09-20] MEDS ORDERED: METOCLOPRAMIDE 10 MG/2 ML VIAL ONE (10:36)
[2020-09-20] MEDS ORDERED: ACETAMINOPHEN 325 MG TAB ONE (10:36)
[2020-09-20] MEDS ORDERED: ASPIRIN 81MG CHEW TAB ONE (10:36)
[2020-09-20 10:44] LABS: BILIRUBIN,TOTAL 0.8 mg/dL (0.2-1.0); CREATININE 0.8 mg/dL (0.5-1.5); POTASSIUM 3.1 mmol/L (3.5-5.1); TOTAL PROTEIN, SERUM 7.2 g/dL (6.0-8.3)
[2020-09-20 10:49] LABS: RBC,URINE None Seen /HPF (0-1)
[2020-09-20 10:50] LABS: BACTERIA,URINE Many /HPF (None Seen); WBC,URINE 51-100 /HPF (0-1)
[2020-09-20 10:53] LABS: CREATINE KINASE, TOTAL 49 U/L (21-232); MYOGLOBIN 39 ng/mL (10-92); TROPONIN I < 0.04 ng/mL (0.00-0.06)
[2020-09-20] MEDS ORDERED: CEFTRIAXONE 1G VIAL ONE (12:42)
[2020-09-20] MEDS ORDERED: POTASSIUM BICARB/CIT AC 25 MEQ TABLET.EFF ONE (12:42)
[2020-09-20] MEDS ORDERED: NITROGLYCERIN 1GM OINT 1 INCH/1GM TD ONE (12:58)
[2020-09-20] MEDS ORDERED: NON-FORMULARY MEDICATION 1 EACH (Atorvastatin Calcium 80 MG) PO SCH (18:45)
[2020-09-20] MEDS ORDERED: NITROGLYCERIN 0.4 MG SL TAB SL SCH (18:45)
[2020-09-20] MEDS ORDERED: ATORVASTATIN 40 MG TABLET PO SCH (21:00)
[2020-09-20] MEDS ORDERED: CARVEDILOL 12.5 MG TABLET PO ONE (22:48)
[2020-09-21 01:21] VITALS: BP 149/81
[2020-09-21] MEDS ORDERED: RANO500T6 PO (02:24)
[2020-09-21 03:01] VITALS: BP 159/79
[2020-09-21] MEDS ORDERED: LEVOTHYROXINE 112 MCG TABLET PO SCH (06:30)
[2020-09-21 07:00] VITALS: BP 154/75
[2020-09-21] MEDS ORDERED: PANTOPRAZOLE 40 MG TAB DR PO SCH (07:30)
[2020-09-21] MEDS: CARVEDILOL 12.5 MG TABLET PO SCH (08:59)
[2020-09-21] MEDS: METFORMIN HCL 500 MG TABLET PO SCH ×2 (08:59→18:18)
[2020-09-21] MEDS ORDERED: ISOSORBIDE MONO 30MG SR TAB PO SCH (09:00)
[2020-09-21] MEDS ORDERED: ASCORBIC ACID 500 MG TAB PO SCH (09:00)
[2020-09-21] MEDS ORDERED: SOLIFENACIN SUCCINATE 10 MG PO SCH ×2 (09:00)
[2020-09-21] MEDS ORDERED: RANOLAZINE 500 MG TAB.SR.12H PO SCH (09:00)
[2020-09-21] MEDS ORDERED: LORATADINE 10 MG TABLET PO SCH (09:00)
[2020-09-21] MEDS ORDERED: ASPIRIN 81 MG EC TAB PO SCH (09:00)
[2020-09-21] MEDS ORDERED: LISINOPRIL 10 MG TABLET PO SCH (09:00)
[2020-09-21] MEDS ORDERED: NON-FORMULARY MEDICATION 1 EACH (Ascorbic Acid (Vitamin C) 500 MG) PO SCH (09:00)
[2020-09-21] MEDS ORDERED: CYANOCOBALAMIN (VITAMIN B-12) 1,000 MCG TABLET PO SCH (09:00)
[2020-09-21] MEDS ORDERED: NON-FORMULARY MEDICATION 1 EACH (Levothyroxine Sodium (Levothyroxine) 112 MCG) PO SCH (09:00)
[2020-09-21] MEDS ORDERED: NON-FORMULARY MEDICATION 1 EACH (Cyanocobalamin (Vitamin B-12) (Vitamin B-12) 1,000 MCG) PO SCH (09:00)
[2020-09-21 11:00] VITALS: BP 145/90
[2020-09-21 16:00] VITALS: BP 142/80
[2020-11-09] MEDS ORDERED: CARV12.511 PO (23:53)
[2020-11-09] MEDS ORDERED: LISI10TA24 PO (23:53)
[2020-11-10] MEDS ORDERED: ATOR40TA71 PO (00:52)
[2020-11-10] MEDS ORDERED: FURO10SO PO (18:25)
[2020-11-10] MEDS ORDERED: POTA-79 PO (18:25)
[2020-11-12] MEDS ORDERED: AMOX-426 PO (13:09)
== END 2020-09-21 19:00 | disposition home or self-care (01) | DRG 303 ==
LOC: EDH 09:49 → EDHIP 18:43 → 4CH 09-21 01:00
PROVIDERS: ADMIT Thoracic Surgery (Cardiothoracic Vascular Surgery); ATTEND Thoracic Surgery (Cardiothoracic Vascular Surgery)
DX: I25.110 Atherosclerotic heart disease of native coronary artery with unstable angina pectoris (principal); G47.30 Sleep apnea, unspecified; Z68.37 Body mass index [BMI] 37.0-37.9, adult; E66.9 Obesity, unspecified; Z20.822 Contact with and (suspected) exposure to COVID-19; I10 Essential (primary) hypertension; E03.9 Hypothyroidism, unspecified; E78.00 Pure hypercholesterolemia, unspecified; J44.9 Chronic obstructive pulmonary disease, unspecified; I44.4 Left anterior fascicular block; Z79.82 Long term (current) use of aspirin; Z90.710 Acquired absence of both cervix and uterus; Z90.49 Acquired absence of other specified parts of digestive tract; Z88.8 Allergy status to other drugs, medicaments and biological substances; Z95.5 Presence of coronary angioplasty implant and graft; Z95.1 Presence of aortocoronary bypass graft; Z86.73 Personal history of transient ischemic attack (TIA), and cerebral infarction without residual deficits; Z82.5 Family history of asthma and other chronic lower respiratory diseases; Z82.3 Family history of stroke; Z83.3 Family history of diabetes mellitus; Z82.49 Family history of ischemic heart disease and other diseases of the circulatory system
CPT/HCPCS: 36415; 71045; 80053; 81001; 82550; 83874; 83880; 84484; 85025; 87040; 87077; 87088; 87186; 87426; 93005; G0378; J0696; J2765; U0003

== ENCOUNTER → 2021-08-15 | Outpatient (CLI) | payer OTHER, MEDICARE ==
[~2021-08-15] MED LIST changes: +AMOX-426 PO; -ASCO500C18 PO; -ATOR-2 PO; +ATOR40TA71 PO; -CYAN-35 PO; +IOHEXOL 350 MG/ML 100ML INFUS..BTL IV ONE; +IOHEXOL-350 75 ML VIAL IV ONE; -LORA10TA7 PO; -NITR0.4T50 SL; -TIZA-194 PO
== END | disposition home or self-care (01) ==
LOC: RAH 09:40
PROVIDERS: ATTEND Internal Medicine Cardiovascular Disease
DX: I25.10 Atherosclerotic heart disease of native coronary artery without angina pectoris (principal); I70.0 Atherosclerosis of aorta; Z98.890 Other specified postprocedural states
CPT/HCPCS: 75574; Q9967

== ENCOUNTER 2021-12-08 06:32 | Day surgery (SDC) | payer OTHER, MEDICARE ==
[2021-12-02 10:06] LABS: BASOPHILS % (AUTO) 0.7 % (0.0-5.0); EOSINOPHILS % (AUTO) 1.5 % (0.0-8.0); HEMATOCRIT 44.4 % (36-48); LYMPHOCYTES % (AUTO) 28.4 % (21.0-51.0); MEAN CORPUSCULAR HEMOGLOBIN 27.8 pg (27.0-33.0); MEAN CORPUSCULAR HGB CONC 31.5 g/dL (32.0-36.0); MEAN CORPUSCULAR VOLUME 88.1 fL (79-99); MONOCYTES % (AUTO) 6.3 % (3.0-13.0); NEUTROPHILS % (AUTO) 62.5 % (40.0-77.0); PLATELET COUNT (AUTO) 223 K/uL (130-400); RED BLOOD CELL COUNT(AUTO) 5.04 MIL/uL (4.00-5.50); RED CELL DISTRIBUTION WIDTH 15.6 % (11.0-15.5); WHITE BLOOD COUNT (AUTO) 10.1 K/uL (4.8-10.8)
[2021-12-02 10:14] LABS: CREATININE 0.9 mg/dL (0.5-1.5); POTASSIUM 4.7 mmol/L (3.5-5.1)
[2021-12-02 10:15] LABS: APPEARANCE,URINE Cloudy (CLEAR); BILIRUBIN,URINE Negative (NEGATIVE); COLOR,URINE Yellow (YELLOW); GLUCOSE, URINE (UA) Negative (NEGATIVE); KETONES,URINE Negative (NEGATIVE); LEUKOCYTE ESTERASE ,URINE Small (NEGATIVE); NITRATE,URINE Negative (NEGATIVE); OCCULT BLOOD,URINE Negative (NEGATIVE); PROTEIN,URINE Trace mg/dL (NEGATIVE)
[2021-12-02 10:18] LABS: BACTERIA,URINE Many /HPF (None Seen); INR 0.93 (0.85-1.15); PROTHROMBIN TIME 10.2 SEC (9.6-11.6); RBC,URINE 0-1 /HPF (0-1); SQUAMOUS EPITHELIAL CELL,UR Rare /HPF (0-2)
[2021-12-02 10:19] LABS: PARTIAL THROMBOPLASTIN TIME 27.9 SEC (26.3-35.5)
[2021-12-08] VITALS (16 sets, daily range): BP systolic 108–148; BP diastolic 60–85
[~2021-12-08] VITALS: Ht 152.4 cm; Wt 89.6 kg
[~2021-12-08 06:32] MED LIST changes: +BOTULINUM TOXIN TYPE A 100 UNITS/VIAL INJ SCH; +CEFTRIAXONE 1G VIAL IVP SCH; -IOHEXOL 350 MG/ML 100ML INFUS..BTL IV ONE; -IOHEXOL-350 75 ML VIAL IV ONE
[2021-12-08] MEDS ORDERED: 0.9%NACL 1000ML 1,000 ML IV ONE (07:24)
[2021-12-08] MEDS ORDERED: CARV6.25 PO (07:50)
[2021-12-08] MEDS ORDERED: LISI5TAB21 PO (07:50)
[2021-12-08] MEDS ORDERED: ROSU20TA31 PO (07:50)
[2021-12-08] MEDS ORDERED: MIRA25TA PO (07:50)
[2021-12-08] MEDS ORDERED: GABA300C PO (07:52)
[2021-12-08] MEDS ORDERED: SUCCINYLCHOLINE 200MG/10ML SYR ONE (08:38)
[2021-12-08] MEDS ORDERED: LIDOCAINE PF 100MG/5ML (2%) SYRINGE 5ML ONE (08:38)
[2021-12-08] MEDS ORDERED: DEXAMETHASONE SOD PHOSPHATE 10MG/ML 1ML VIAL ONE (08:38)
[2021-12-08] MEDS ORDERED: PROPOFOL 10 MG/ML 20ML VIAL IV ONE (08:39)
[2021-12-08] MEDS ORDERED: ONDANSETRON 4MG INJ ONE ×2 (08:39→10:02)
[2021-12-08] MEDS ORDERED: MIDAZOLAM HCL 1 MG/ML 2ML VIAL ONE (08:39)
[2021-12-08] MEDS ORDERED: FENTANYL CITRATE PF 50 MCG/1 ML 2ML VIAL ONE (08:39)
[2021-12-08] MEDS ORDERED: LEVOFLOXACIN 500 MG/D5W 100 ML 100 ML ONE (09:23)
[2021-12-08] MEDS ORDERED: METOCLOPRAMIDE 10 MG/2 ML VIAL ONE (10:13)
== END 2021-12-08 11:20 | disposition home or self-care (01) ==
LOC: DAH 06:32
PROVIDERS: ATTEND Urology
DX: N39.41 Urge incontinence (principal); R46.3 Overactivity; I10 Essential (primary) hypertension; E11.9 Type 2 diabetes mellitus without complications; E66.9 Obesity, unspecified; I25.10 Atherosclerotic heart disease of native coronary artery without angina pectoris; K21.9 Gastro-esophageal reflux disease without esophagitis; Z86.73 Personal history of transient ischemic attack (TIA), and cerebral infarction without residual deficits; Z95.1 Presence of aortocoronary bypass graft; Z98.890 Other specified postprocedural states; Z90.49 Acquired absence of other specified parts of digestive tract; Z79.01 Long term (current) use of anticoagulants; Z79.899 Other long term (current) drug therapy; Z90.710 Acquired absence of both cervix and uterus; Z88.8 Allergy status to other drugs, medicaments and biological substances; Z88.6 Allergy status to analgesic agent; Z91.041 Radiographic dye allergy status; Z82.49 Family history of ischemic heart disease and other diseases of the circulatory system
CPT/HCPCS: 36415; 52287; 71045; 80048; 81001; 82948 ×2; 85025; 85610; 85730; 87077; 87088; 87186; 87635; 93005; A4215; A4221; A4222; A4223; A4358; A4600; A4663; A6260; C1758; C1769; C9803; J0330; J0585; J1100; J1956; J2001; J2250; J2405 ×2; J2704; J2765; J3010; J7030; J7120; J0696

== ENCOUNTER 2022-03-22 14:18 | Observation (INO) | payer OTHER, MEDICARE ==
[~2022-03-22] VITALS: Ht 154.9 cm; Wt 89.3 kg
[~2022-03-22 14:18] MED LIST changes: -AMOX-426 PO; -ATOR40TA71 PO; -BOTULINUM TOXIN TYPE A 100 UNITS/VIAL INJ SCH; -CARV12.511 PO; +CARV6.25 PO; -CEFTRIAXONE 1G VIAL IVP SCH; +GABA300C PO; -ISOS30TA92 PO; -LISI10TA24 PO; +LISI5TAB21 PO; +MIRA25TA PO; +ROSU20TA31 PO
[2022-03-22 15:19] LABS: BASOPHILS % (AUTO) 0.8 % (0.0-5.0); EOSINOPHILS % (AUTO) 1.4 % (0.0-8.0); HEMATOCRIT 38.8 % (36-48); LYMPHOCYTES % (AUTO) 32.7 % (21.0-51.0); MEAN CORPUSCULAR HEMOGLOBIN 28.9 pg (27.0-33.0); MEAN CORPUSCULAR HGB CONC 33.2 g/dL (32.0-36.0); MEAN CORPUSCULAR VOLUME 86.8 fL (79-99); MONOCYTES % (AUTO) 7.6 % (3.0-13.0); NEUTROPHILS % (AUTO) 57.3 % (40.0-77.0); PLATELET COUNT (AUTO) 206 K/uL (130-400); RED BLOOD CELL COUNT(AUTO) 4.47 MIL/uL (4.00-5.50); RED CELL DISTRIBUTION WIDTH 15.2 % (11.0-15.5)
[2022-03-22 15:32] LABS: HEMOGLOBIN A1C 6.2 % (4.0-6.0)
[2022-03-22 15:38] LABS: POTASSIUM 3.8 mmol/L (3.5-5.1)
[2022-03-22 15:50] LABS: ALBUMIN 3.3 g/dL (3.5-5.0); THYROID STIMULATING HORMONE 0.13 uIU/mL (0.36-3.74); TOTAL PROTEIN, SERUM 7.3 g/dL (6.0-8.3)
[2022-03-22 16:30] VITALS: BP 119/65
[2022-03-22] MEDS ORDERED: IOHEXOL-350 75 ML VIAL IV ONE (17:01)
[2022-03-22 19:00] VITALS: BP 130/79
[2022-03-22] MEDS ORDERED: NITR0.4T50 SL (22:26)
[2022-03-22] MEDS ORDERED: IBUP-2784 PO (22:26)
[2022-03-22] MEDS ORDERED: vitamin b12 PO (22:26)
[2022-03-22] MEDS ORDERED: RANO500T6 PO (22:26)
[2022-03-22] MEDS ORDERED: folic acid PO (22:26)
[2022-03-22] MEDS ORDERED: TRAM-355 PO (22:26)
[2022-03-22] MEDS ORDERED: ACET-2123 PO (22:26)
[2022-03-22] MEDS ORDERED: CARB-242 OU (22:26)
[2022-03-22] MEDS ORDERED: PANT40TA54 PO (22:26)
[2022-03-23] VITALS: BP 122/74
[2022-03-23 04:00] VITALS: BP 126/75
[2022-03-23] MEDS ORDERED: LEVOTHYROXINE 112 MCG TABLET ONE (06:48)
[2022-03-23 07:08] LABS: BASOPHILS % (AUTO) 0.8 % (0.0-5.0); EOSINOPHILS % (AUTO) 1.1 % (0.0-8.0); HEMATOCRIT 38.4 % (36-48); LYMPHOCYTES % (AUTO) 30.1 % (21.0-51.0); MEAN CORPUSCULAR HEMOGLOBIN 28.4 pg (27.0-33.0); MEAN CORPUSCULAR HGB CONC 32.8 g/dL (32.0-36.0); MEAN CORPUSCULAR VOLUME 86.5 fL (79-99); MONOCYTES % (AUTO) 6.4 % (3.0-13.0); NEUTROPHILS % (AUTO) 61.1 % (40.0-77.0); PLATELET COUNT (AUTO) 190 K/uL (130-400); RED BLOOD CELL COUNT(AUTO) 4.44 MIL/uL (4.00-5.50); RED CELL DISTRIBUTION WIDTH 15.3 % (11.0-15.5); WHITE BLOOD COUNT (AUTO) 9.6 K/uL (4.8-10.8)
[2022-03-23 07:18] LABS: CREATININE 1.2 mg/dL (0.5-1.5); POTASSIUM 3.8 mmol/L (3.5-5.1)
[2022-03-23 07:30] VITALS: BP 130/76
[2022-03-23] MEDS ORDERED: **HM** MYRBETRIQ 25MG PO SCH (09:00)
[2022-03-23] MEDS ORDERED: LEVOTHYROXINE 112 MCG TABLET PO SCH (09:00)
[2022-03-23] MEDS ORDERED: GABAPENTIN 300 MG CAPSULE PO SCH ×2 (09:00→09:30)
[2022-03-23] MEDS ORDERED: RANOLAZINE 500 MG TAB.SR.12H PO SCH (09:00)
[2022-03-23] MEDS ORDERED: LISINOPRIL 5 MG TABLET PO SCH (09:00)
[2022-03-23] MEDS ORDERED: PANTOPRAZOLE 40 MG TAB DR PO SCH (09:00)
[2022-03-23] MEDS ORDERED: ASPIRIN 81 MG EC TAB PO SCH (09:00)
[2022-03-23 11:00] VITALS: BP 125/80
[2022-03-23 16:00] VITALS: BP 122/70
[2022-03-23] MEDS ORDERED: LEVO100C4 PO (18:45)
[2022-03-23] MEDS ORDERED: GABA300C PO (18:45)
[2022-03-23] MEDS ORDERED: ATORVASTATIN 40 MG TABLET PO SCH (21:00)
== END 2022-03-23 19:36 | disposition home or self-care (01) ==
LOC: EDH 14:18 → INTOOBSV 14:19 → 4BH 14:19
PROVIDERS: ADMIT Internal Medicine; ATTEND Internal Medicine
DX: R06.02 Shortness of breath (principal); R06.00 Dyspnea, unspecified; R00.0 Tachycardia, unspecified; R00.1 Bradycardia, unspecified; I25.10 Atherosclerotic heart disease of native coronary artery without angina pectoris; G47.33 Obstructive sleep apnea (adult) (pediatric); I10 Essential (primary) hypertension; E78.5 Hyperlipidemia, unspecified; E11.9 Type 2 diabetes mellitus without complications; E66.9 Obesity, unspecified; E03.9 Hypothyroidism, unspecified; Z79.890 Hormone replacement therapy; Z90.710 Acquired absence of both cervix and uterus; Z91.19 Patient's noncompliance with other medical treatment and regimen; Z79.899 Other long term (current) drug therapy
CPT/HCPCS: 83036; 84443; 84484 ×3; 80053; 85025 ×2; 84439; 84481; 36415 ×2; 71045; 71270; 93970; 80048; 82948 ×2; 93306; 93005; Q9967; G0378 ×8

== ENCOUNTER 2022-06-29 05:50 | Day surgery (SDC) | payer OTHER, MEDICARE ==
[2022-06-27 08:51] LABS: BASOPHILS % (AUTO) 0.8 % (0.0-5.0); HEMATOCRIT 39.4 % (36-48); LYMPHOCYTES % (AUTO) 29.1 % (21.0-51.0); MEAN CORPUSCULAR HEMOGLOBIN 27.5 pg (27.0-33.0); MEAN CORPUSCULAR HGB CONC 31.7 g/dL (32.0-36.0); MEAN CORPUSCULAR VOLUME 86.8 fL (79-99); MONOCYTES % (AUTO) 8.2 % (3.0-13.0); NEUTROPHILS % (AUTO) 58.4 % (40.0-77.0); PLATELET COUNT (AUTO) 204 K/uL (130-400); RED BLOOD CELL COUNT(AUTO) 4.54 MIL/uL (4.00-5.50); RED CELL DISTRIBUTION WIDTH 14.6 % (11.0-15.5); WHITE BLOOD COUNT (AUTO) 8.4 K/uL (4.8-10.8)
[2022-06-28 09:02] VITALS: BP 103/62
[~2022-06-29] VITALS: Ht 154.9 cm; Wt 93.0 kg
[2022-06-29] VITALS (14 sets, daily range): BP systolic 111–142; BP diastolic 63–81
[~2022-06-29 05:50] MED LIST changes: +CARB15DR OP; -CARV6.25 PO; +LEVO100C4 PO; -LEVO112C4 PO; -MIRA25TA PO; +NITR0.4T50 SL; +ONDA8TAB12 PO; -PANT40TA PO; +PANT40TA54 PO; +RANO500T3 PO; +SEMA1PEN3 SQ; -SOLI10TA PO; +folic acid PO; +vitamin b12 PO
[2022-06-29] MEDS ORDERED: BOTULINUM TOXIN TYPE A 100 UNITS/VIAL INJ SCH (06:00)
[2022-06-29] MEDS ORDERED: CEFTRIAXONE 1G VIAL IVPB SCH (06:00)
[2022-06-29] MEDS ORDERED: LIDOCAINE HCL 2% PF 20 ML JEL DISP.SYRIN MM ONE ×2 (06:03)
[2022-06-29] MEDS ORDERED: 0.9%NACL 1000ML 1,000 ML IV ONE (06:27)
[2022-06-29] MEDS ORDERED: LACTATED RINGERS 1000ML 0 ML IV ONE (06:27)
[2022-06-29 07:59] LABS: APPEARANCE,URINE CLEAR (CLEAR); BILIRUBIN,URINE NEGATIVE (NEGATIVE); COLOR,URINE YELLOW (YELLOW); GLUCOSE, URINE (UA) NEGATIVE (NEGATIVE); KETONES,URINE NEGATIVE (NEGATIVE); LEUKOCYTE ESTERASE ,URINE 75 Leu/uL (NEGATIVE); NITRATE,URINE 2+ (NEGATIVE); OCCULT BLOOD,URINE NEGATIVE (NEGATIVE); PH,URINE 5.5 (5.0-8.0); PROTEIN,URINE 30 mg/dL (NEGATIVE); UROBILINOGEN,URINE 0.2 mg/dL (0.2-1.0)
[2022-06-29] MEDS ORDERED: PROPOFOL 10 MG/ML 20ML VIAL IV ONE (08:04)
[2022-06-29] MEDS ORDERED: LIDOCAINE PF 100MG/5ML (2%) SYRINGE 5ML ONE (08:04)
[2022-06-29 08:13] LABS: BACTERIA,URINE MOD /HPF (None Seen); MUCUS,URINE FEW LPF (None Seen); SQUAMOUS EPITHELIAL CELL,UR RARE /HPF (0-2); WBC,URINE 26-50 /HPF (0-1)
[2022-06-29] MEDS ORDERED: FAMOTIDINE 20MG VIAL IV ONE (08:25)
[2022-06-29] MEDS ORDERED: ONDANSETRON 4MG INJ ONE (08:26)
[2022-06-29] MEDS ORDERED: PHENYLEPHRINE HCL 10 MG/ML 1ML VIAL IV ONE (08:31)
[2022-06-29] MEDS ORDERED: CEFTRIAXONE 1G VIAL IVPB ONE (08:55)
[2022-06-29] MEDS ORDERED: FENTANYL CITRATE PF 50 MCG/1 ML 2ML VIAL ONE (09:03)
[2022-06-29] MEDS ORDERED: BOTULINUM TOXIN TYPE A 100 UNITS/VIAL INJ ONE (09:23)
== END 2022-06-29 11:30 | disposition home or self-care (01) ==
LOC: DAH 05:50
PROVIDERS: ATTEND Urology
DX: N39.41 Urge incontinence (principal); Z20.822 Contact with and (suspected) exposure to COVID-19; I10 Essential (primary) hypertension; I25.10 Atherosclerotic heart disease of native coronary artery without angina pectoris; K21.9 Gastro-esophageal reflux disease without esophagitis; E66.9 Obesity, unspecified; E11.9 Type 2 diabetes mellitus without complications; Z79.82 Long term (current) use of aspirin; Z79.84 Long term (current) use of oral hypoglycemic drugs; Z79.899 Other long term (current) drug therapy; Z98.890 Other specified postprocedural states; Z79.01 Long term (current) use of anticoagulants; Z90.710 Acquired absence of both cervix and uterus; Z90.49 Acquired absence of other specified parts of digestive tract; Z86.73 Personal history of transient ischemic attack (TIA), and cerebral infarction without residual deficits; Z95.1 Presence of aortocoronary bypass graft; Z79.890 Hormone replacement therapy
CPT/HCPCS: 80048; 85025; 87426; 36415; 71045; 93005; 52287; 87077; 87088; 87186; 82948 ×2; 81001; A4663; J3490; J3010; J7030; J2001; J0696 ×2; J2704; J2405; J2370; J0585 ×2; A4358; A4215 ×2; A4930; A4223; A4222; A4221; A4600; J7120

== ENCOUNTER → 2023-01-03 | Outpatient (CLI) | payer OTHER, MEDICARE ==
[~2023-01-03] VITALS: Ht 154.9 cm; Wt 90.2 kg
[~2023-01-03] MED LIST changes: -ROSU20TA31 PO; +ROSU20TA73 PO
[2023-01-03 10:39] LABS: BASOPHILS # (AUTO) 0.09 K/uL (0.00-0.20); EOSINOPHILS # (AUTO) 0.15 K/uL (0.00-0.70); EOSINOPHILS % (AUTO) 1.6 % (0.0-8.0); HEMATOCRIT 39.6 % (36-48); IMMATURE GRANULOCYTE ABSOLUTE 0.04 K/uL (0-1); LYMPHOCYTES # (AUTO) 3.3 K/uL (1.0-4.8); LYMPHOCYTES % (AUTO) 35.7 % (21.0-51.0); MEAN CORPUSCULAR HEMOGLOBIN 28.6 pg (27.0-33.0); MEAN CORPUSCULAR HGB CONC 32.3 g/dL (32.0-36.0); MEAN CORPUSCULAR VOLUME 88.6 fL (79-99); MONOCYTES # (AUTO) 0.6 K/uL (0.1-1.0); MONOCYTES % (AUTO) 6.5 % (3.0-13.0); NEUTROPHILS % (AUTO) 54.8 % (40.0-77.0); PLATELET COUNT (AUTO) 237 K/uL (130-400); RED BLOOD CELL COUNT(AUTO) 4.47 MIL/uL (4.00-5.50); RED CELL DISTRIBUTION WIDTH 15.5 % (11.0-15.5); WHITE BLOOD COUNT (AUTO) 9.2 K/uL (4.8-10.8)
[2023-01-03 10:44] LABS: APPEARANCE,URINE CLEAR (CLEAR); BILIRUBIN,URINE NEGATIVE (NEGATIVE); COLOR,URINE COLORLESS (YELLOW); GLUCOSE, URINE (UA) NEGATIVE (NEGATIVE); KETONES,URINE NEGATIVE (NEGATIVE); LEUKOCYTE ESTERASE ,URINE NEGATIVE Leu/uL (NEGATIVE); NITRATE,URINE 1+ (NEGATIVE); OCCULT BLOOD,URINE NEGATIVE (NEGATIVE); PROTEIN,URINE NEGATIVE (NEGATIVE); UROBILINOGEN,URINE 0.2 mg/dL (0.2-1.0)
[2023-01-03 10:45] LABS: ADD UA MICROSCOPIC YES
[2023-01-03 10:48] LABS: BACTERIA,URINE MOD /HPF (None Seen); MUCUS,URINE RARE LPF (None Seen); SQUAMOUS EPITHELIAL CELL,UR RARE /HPF (0-2)
[2023-01-03 10:51] LABS: CREATININE 0.9 mg/dL (0.5-1.5); POTASSIUM 3.9 mmol/L (3.5-5.1)
[2023-01-03 11:05] VITALS: BP 104/67; PULSE 77; RESP 16
== END | disposition home or self-care (01) ==
LOC: DAH 10:00 → EDSTATUS 01-04 08:00
PROVIDERS: ATTEND Urology
DX: N39.41 Urge incontinence (principal); Z53.8 Procedure and treatment not carried out for other reasons; Z20.822 Contact with and (suspected) exposure to COVID-19; Z79.82 Long term (current) use of aspirin; Z79.899 Other long term (current) drug therapy
CPT/HCPCS: 93005; 87426; 80048; 85025; 87077; 87088; 87186; 81001; 36415; A6260

== ENCOUNTER 2023-02-22 05:52 | Day surgery (SDC) | payer OTHER, MEDICARE ==
[2023-02-19 09:06] LABS: BASOPHILS # (AUTO) 0.06 K/uL (0.00-0.20); BASOPHILS % (AUTO) 0.7 % (0.0-5.0); EOSINOPHILS # (AUTO) 0.21 K/uL (0.00-0.70); EOSINOPHILS % (AUTO) 2.5 % (0.0-8.0); HEMATOCRIT 40.1 % (36-48); IMMATURE GRANULOCYTE ABSOLUTE 0.05 K/uL (0-1); LYMPHOCYTES # (AUTO) 2.8 K/uL (1.0-4.8); LYMPHOCYTES % (AUTO) 33.3 % (21.0-51.0); MEAN CORPUSCULAR HEMOGLOBIN 28.4 pg (27.0-33.0); MEAN CORPUSCULAR HGB CONC 32.7 g/dL (32.0-36.0); MONOCYTES # (AUTO) 0.6 K/uL (0.1-1.0); MONOCYTES % (AUTO) 6.9 % (3.0-13.0); NEUTROPHILS # (AUTO) 4.7 K/uL (1.8-7.7); PLATELET COUNT (AUTO) 230 K/uL (130-400); RED BLOOD CELL COUNT(AUTO) 4.61 MIL/uL (4.00-5.50); RED CELL DISTRIBUTION WIDTH 15.4 % (11.0-15.5); WHITE BLOOD COUNT (AUTO) 8.4 K/uL (4.8-10.8)
[2023-02-19 09:10] VITALS: BP 131/83; PULSE 77; RESP 17
[2023-02-19 11:06] LABS: APPEARANCE,URINE CLEAR (CLEAR); BILIRUBIN,URINE NEGATIVE (NEGATIVE); COLOR,URINE COLORLESS (YELLOW); GLUCOSE, URINE (UA) NEGATIVE (NEGATIVE); KETONES,URINE NEGATIVE (NEGATIVE); LEUKOCYTE ESTERASE ,URINE NEGATIVE Leu/uL (NEGATIVE); NITRATE,URINE NEGATIVE (NEGATIVE); OCCULT BLOOD,URINE NEGATIVE (NEGATIVE); PROTEIN,URINE NEGATIVE (NEGATIVE); UROBILINOGEN,URINE 0.2 mg/dL (0.2-1.0)
[2023-02-19 11:09] LABS: ADD UA MICROSCOPIC NO
[~2023-02-22] VITALS: Ht 154.9 cm; Wt 92.4 kg
[~2023-02-22 05:52] MED LIST changes: -CARB15DR OP; -LEVO100C4 PO; -ONDA8TAB12 PO; -SEMA1PEN3 SQ
[2023-02-22] MEDS ORDERED: BOTULINUM TOXIN TYPE A 100 UNITS/VIAL INJ SCH (07:00)
[2023-02-22 07:20] VITALS: BP 158/95; PULSE 83; RESP 17
[2023-02-22] MEDS ORDERED: LEVOFLOXACIN 500 MG/D5W 100 ML 100 ML ONE (07:31)
[2023-02-22] MEDS ORDERED: 0.9%NACL 1000ML 1,000 ML IV ONE (07:31)
[2023-02-22 07:51] LABS: CREATININE 1.1 mg/dL (0.5-1.5); POTASSIUM 4.3 mmol/L (3.5-5.1)
[2023-02-22] MEDS ORDERED: SCOPOLAMINE HYDROBROMIDE 1 EACH ADH..PATCH TD ONE (07:59)
[2023-02-22] MEDS ORDERED: SEMA0.258 SQ (08:10)
[2023-02-22] MEDS ORDERED: LEVO100C4 PO (08:10)
[2023-02-22] MEDS ORDERED: CETI10TA57 PO (08:10)
[2023-02-22] MEDS ORDERED: METO-408 PO (08:10)
[2023-02-22] MEDS ORDERED: FURO20TA4 PO (08:10)
[2023-02-22] MEDS ORDERED: BOTULINUM TOXIN TYPE A 100 UNITS/VIAL INJ ONE (09:00)
== END 2023-02-22 09:05 | disposition home or self-care (01) ==
LOC: DAH 05:52
PROVIDERS: ATTEND Urology
DX: N39.41 Urge incontinence (principal); Z20.822 Contact with and (suspected) exposure to COVID-19; I10 Essential (primary) hypertension; E11.9 Type 2 diabetes mellitus without complications; K21.9 Gastro-esophageal reflux disease without esophagitis; E66.9 Obesity, unspecified; Z53.8 Procedure and treatment not carried out for other reasons; Z86.73 Personal history of transient ischemic attack (TIA), and cerebral infarction without residual deficits; Z90.710 Acquired absence of both cervix and uterus; Z90.49 Acquired absence of other specified parts of digestive tract; Z95.1 Presence of aortocoronary bypass graft; Z98.890 Other specified postprocedural states
CPT/HCPCS: 93005; 85025; 87077; 87088; 87186; 81003; 36415 ×2; 80048; 82948; A6260; A4663; J1956; J7030; A4215; A4223; A4222; A4221; J0585

== ENCOUNTER → 2023-04-18 | Outpatient (CLI) | payer OTHER, MEDICARE ==
[~2023-04-18] MED LIST changes: +CETI10TA57 PO; +FURO20TA4 PO; +LEVO100C4 PO; +METO-408 PO; +SEMA0.258 SQ
== END | disposition home or self-care (01) ==
LOC: RAH 08:37
PROVIDERS: ATTEND Surgery
DX: K21.9 Gastro-esophageal reflux disease without esophagitis (principal); K44.9 Diaphragmatic hernia without obstruction or gangrene; Z98.890 Other specified postprocedural states
CPT/HCPCS: 74240

== ENCOUNTER 2023-07-12 05:50 | Observation (INO) | payer OTHER, MEDICARE ==
[2023-07-09 08:18] LABS: BASOPHILS # (AUTO) 0.08 K/uL (0.00-0.20); BASOPHILS % (AUTO) 1.2 % (0.0-5.0); EOSINOPHILS # (AUTO) 0.12 K/uL (0.00-0.70); EOSINOPHILS % (AUTO) 1.8 % (0.0-8.0); HEMATOCRIT 40.1 % (36-48); IMMATURE GRANULOCYTE ABSOLUTE 0.03 K/uL (0-1); LYMPHOCYTES # (AUTO) 2.5 K/uL (1.0-4.8); LYMPHOCYTES % (AUTO) 36.3 % (21.0-51.0); MEAN CORPUSCULAR HEMOGLOBIN 30.6 pg (27.0-33.0); MEAN CORPUSCULAR HGB CONC 32.4 g/dL (32.0-36.0); MEAN CORPUSCULAR VOLUME 94.4 fL (79-99); MONOCYTES # (AUTO) 0.5 K/uL (0.1-1.0); NEUTROPHILS # (AUTO) 3.5 K/uL (1.8-7.7); NEUTROPHILS % (AUTO) 52.3 % (40.0-77.0); PLATELET COUNT (AUTO) 228 K/uL (130-400); RED BLOOD CELL COUNT(AUTO) 4.25 MIL/uL (4.00-5.50); RED CELL DISTRIBUTION WIDTH 15.1 % (11.0-15.5); WHITE BLOOD COUNT (AUTO) 6.8 K/uL (4.8-10.8)
[2023-07-09 08:26] LABS: POTASSIUM 3.9 mmol/L (3.5-5.1)
[2023-07-09 09:15] VITALS: BP 138/79; PULSE 65; RESP 18
[~2023-07-12] VITALS: Ht 154.9 cm; Wt 93.5 kg
[2023-07-12] VITALS (39 sets, daily range): BP systolic 104–156; BP diastolic 62–97; PULSE 61–87; RESP 13–20; O2SAT 98
[~2023-07-12 05:50] MED LIST changes: -SEMA0.258 SQ
[2023-07-12] MEDS ORDERED: CEFAZOLIN SODIUM 2 GM VIAL ONE (06:21)
[2023-07-12] MEDS ORDERED: 0.9%NACL 1000ML 1,000 ML IV ONE (06:21)
[2023-07-12] MEDS ORDERED: SCOPOLAMINE HYDROBROMIDE 1 EACH ADH..PATCH TD ONE (06:50)
[2023-07-12] MEDS ORDERED: ACETAMINOPHEN 1,000 MG/100 ML VIAL IV ONE (06:50)
[2023-07-12] MEDS ORDERED: FAMOTIDINE 20MG VIAL IV ONE (06:51)
[2023-07-12] MEDS ORDERED: LIDOCAINE PF 100MG/5ML (2%) SYRINGE 5ML ONE (06:54)
[2023-07-12] MEDS ORDERED: PROPOFOL 10 MG/ML 20ML VIAL IV ONE (06:54)
[2023-07-12] MEDS ORDERED: ROCURONIUM BROMIDE 10MG/1ML 5ML VL ONE ×2 (06:55→08:23)
[2023-07-12] MEDS ORDERED: FENTANYL CITRATE PF 50 MCG/1 ML 2ML VIAL ONE (06:55)
[2023-07-12] MEDS ORDERED: BUPIVACAINE/PF 0.5% 30ML VIAL ONE (07:40)
[2023-07-12] MEDS ORDERED: ONDANSETRON 4MG INJ ONE (08:31)
[2023-07-12] MEDS ORDERED: NEOSTIGMINE METHYLSULFATE 1MG/ML IV ONE (08:31)
[2023-07-12] MEDS ORDERED: DEXAMETHASONE SOD PHOSPHATE 10MG/ML 1ML VIAL ONE (08:31)
[2023-07-12] MEDS ORDERED: GLYCOPYRROLATE 0.2 MG/ML 5 ML VIAL ONE (08:31)
[2023-07-12] MEDS ORDERED: PHENYLEPHRINE HCL 10 MG/ML 1ML VIAL IV ONE (08:46)
[2023-07-12] MEDS ORDERED: HYDROCODONE/ACETAMINOPHEN 7.5/325 MG 15 ML UDCUP PO PRN (10:30)
[2023-07-12] MEDS ORDERED: ONDANSETRON 4MG INJ IVP PRN (10:30)
[2023-07-12] MEDS ORDERED: PROCHLORPERAZINE 10MG/2ML INJ IV PRN (10:30)
[2023-07-12] MEDS ORDERED: KETOROLAC 30MG VIAL (30MG/ML) IV PRN (10:30)
[2023-07-12] MEDS: ENOXAPARIN SODIUM 30 MG/0.3 ML SQ SCH ×2 (10:30→21:40)
[2023-07-12] MEDS ORDERED: NITROGLYCERIN 1GM OINT 1 INCH/1GM TD ONE (11:46)
[2023-07-12] MEDS ORDERED: MORPHINE 4 MG SYG ONE (11:47)
[2023-07-12] MEDS ORDERED: NITROGLYCERIN 0.4 MG SL TAB SL ONE (11:51)
[2023-07-12] MEDS ORDERED: ASPIRIN 81MG CHEW TAB ONE (11:53)
[2023-07-12] MEDS: HYDROMORPHONE 1 MG INJ IVP PRN ×2 (15:26→19:41)
[2023-07-12] MEDS: LACTATED RINGERS 1000ML 1,000 ML IV SCH (17:40)
[2023-07-12] MEDS: RANOLAZINE 500 MG TAB.SR.12H PO SCH (19:40)
[2023-07-12] MEDS: METOPROLOL SUCCINATE 25 MG TAB.SR.24H PO SCH (19:40)
[2023-07-13] VITALS: BP 136/87; PULSE 79; RESP 18
[2023-07-13] MEDS: HYDROMORPHONE 1 MG INJ IVP PRN ×3 (01:14→12:29)
[2023-07-13] MEDS: LACTATED RINGERS 1000ML 1,000 ML IV SCH ×2 (02:30→10:30)
[2023-07-13 04:00] VITALS: BP 128/94; PULSE 75; RESP 20
[2023-07-13] MEDS ORDERED: LEVOTHYROXINE 100 MCG TABLET PO SCH (06:30)
[2023-07-13 08:00] VITALS: BP 146/102; PULSE 80; RESP 18; O2SAT 96
[2023-07-13] MEDS: METOPROLOL SUCCINATE 25 MG TAB.SR.24H PO SCH (08:11)
[2023-07-13] MEDS: RANOLAZINE 500 MG TAB.SR.12H PO SCH (08:11)
[2023-07-13] MEDS ORDERED: FUROSEMIDE 20 MG TABLET PO SCH (09:00)
[2023-07-13] MEDS ORDERED: NON-FORMULARY MEDICATION 1 EACH (Levothyroxine Sodium (Levothyroxine) 100 MCG) PO SCH (09:00)
[2023-07-13] MEDS ORDERED: PANTOPRAZOLE 40 MG/VIAL IVP SCH (09:00)
[2023-07-13] MEDS ORDERED: LISINOPRIL 5 MG TABLET PO SCH (09:00)
[2023-07-13] MEDS: ENOXAPARIN SODIUM 30 MG/0.3 ML SQ SCH (11:00)
[2023-07-13 12:00] VITALS: BP 155/90; PULSE 70; RESP 18
[2023-07-13 16:00] VITALS: BP 130/63; PULSE 72; RESP 18
[2023-07-13] MEDS ORDERED: METFORMIN HCL 500 MG TABLET PO SCH (17:00)
== END 2023-07-13 16:50 | disposition home or self-care (01) ==
LOC: DAH 05:50 → INTOOBSV 05:51 → DAHIP 05:51 → 4CH 13:30 → EDSTATUS 16:00
PROVIDERS: ADMIT Surgery; ATTEND Surgery
DX: K44.9 Diaphragmatic hernia without obstruction or gangrene (principal); I25.10 Atherosclerotic heart disease of native coronary artery without angina pectoris; I10 Essential (primary) hypertension; E11.9 Type 2 diabetes mellitus without complications; E78.00 Pure hypercholesterolemia, unspecified; E66.01 Morbid (severe) obesity due to excess calories; E78.2 Mixed hyperlipidemia; M15.9 Polyosteoarthritis, unspecified; E03.9 Hypothyroidism, unspecified; F19.90 Other psychoactive substance use, unspecified, uncomplicated; Z79.899 Other long term (current) drug therapy
CPT/HCPCS: 43282; S2900; 36415; 43235; 80048; 82550; 82948; 84484; 85025; 86850; 86900; 86901; 93005; 96372; 96374; 96375; 96376; C9113; G0378; J1100; J1170; J1650; J1885; J2001; J2270; J2371; J2405; J2704; J2710; J3010; J3490; J7030; A4213; A4215; A4221; A4222; A4223; A4600; A4663; A4930; A6260; C1781; G0168; J0665; J0690

== ENCOUNTER 2023-10-18 07:32 | Day surgery (SDC) | payer OTHER, MEDICARE ==
[2023-10-12 12:38] LABS: APPEARANCE,URINE CLOUDY (CLEAR); BILIRUBIN,URINE NEGATIVE (NEGATIVE); COLOR,URINE LIGHT-YELLOW (YELLOW); GLUCOSE, URINE (UA) NEGATIVE (NEGATIVE); KETONES,URINE NEGATIVE (NEGATIVE); LEUKOCYTE ESTERASE ,URINE NEGATIVE Leu/uL (NEGATIVE); NITRATE,URINE NEGATIVE (NEGATIVE); OCCULT BLOOD,URINE NEGATIVE (NEGATIVE); PH,URINE 5.5 (5.0-8.0); PROTEIN,URINE 20 mg/dL (NEGATIVE); UROBILINOGEN,URINE 0.2 mg/dL (0.2-1.0)
[2023-10-12 12:43] LABS: ADD UA MICROSCOPIC YES
[2023-10-12 12:54] LABS: BASOPHILS # (AUTO) 0.08 K/uL (0.00-0.20); BASOPHILS % (AUTO) 0.8 % (0.0-5.0); EOSINOPHILS # (AUTO) 0.17 K/uL (0.00-0.70); EOSINOPHILS % (AUTO) 1.6 % (0.0-8.0); HEMATOCRIT 40.1 % (36-48); IMMATURE GRANULOCYTE ABSOLUTE 0.05 K/uL (0-1); LYMPHOCYTES # (AUTO) 3.8 K/uL (1.0-4.8); LYMPHOCYTES % (AUTO) 35.9 % (21.0-51.0); MEAN CORPUSCULAR HEMOGLOBIN 29.2 pg (27.0-33.0); MEAN CORPUSCULAR HGB CONC 32.7 g/dL (32.0-36.0); MEAN CORPUSCULAR VOLUME 89.3 fL (79-99); MONOCYTES # (AUTO) 0.7 K/uL (0.1-1.0); MONOCYTES % (AUTO) 6.7 % (3.0-13.0); NEUTROPHILS # (AUTO) 5.7 K/uL (1.8-7.7); NEUTROPHILS % (AUTO) 54.5 % (40.0-77.0); PLATELET COUNT (AUTO) 289 K/uL (130-400); RED BLOOD CELL COUNT(AUTO) 4.49 MIL/uL (4.00-5.50); RED CELL DISTRIBUTION WIDTH 15.2 % (11.0-15.5); WHITE BLOOD COUNT (AUTO) 10.5 K/uL (4.8-10.8)
[2023-10-12 12:55] LABS: BACTERIA,URINE FEW /HPF (None Seen); MUCUS,URINE RARE LPF (None Seen); RBC,URINE 0-1 /HPF (0-1); SQUAMOUS EPITHELIAL CELL,UR RARE /HPF (0-2)
[2023-10-12 13:01] LABS: CREATININE 1.1 mg/dL (0.5-1.0); POTASSIUM 4.4 mmol/L (3.5-5.1)
[2023-10-12 13:55] VITALS: BP 137/73; PULSE 72; RESP 18
[~2023-10-18] VITALS: Ht 154.9 cm; Wt 87.7 kg
[2023-10-18] VITALS (16 sets, daily range): BP systolic 110–134; BP diastolic 58–76; PULSE 62–68; RESP 13–18
[~2023-10-18 07:32] MED LIST changes: +BOTULINUM TOXIN TYPE A 100 UNITS/VIAL INJ ONE; +NITR100C4 PO
[2023-10-18] MEDS: CEFTRIAXONE 1G VIAL ONE (08:54)
[2023-10-18] MEDS: 0.9%NACL 1000ML 1,000 ML IV ONE (08:55)
[2023-10-18] MEDS ORDERED: SCOPOLAMINE HYDROBROMIDE 1 EACH ADH..PATCH TD ONE (09:28)
[2023-10-18] MEDS ORDERED: FAMOTIDINE 20MG VIAL IV ONE (09:28)
[2023-10-18] MEDS ORDERED: PROPOFOL 10 MG/ML 20ML VIAL IV ONE (09:35)
[2023-10-18] MEDS ORDERED: FENTANYL CITRATE PF 50 MCG/1 ML 2ML VIAL ONE (09:35)
[2023-10-18] MEDS ORDERED: LIDOCAINE PF 100MG/5ML (2%) SYRINGE 5ML ONE (09:35)
[2023-10-18] MEDS ORDERED: ONDANSETRON 4MG INJ ONE (10:34)
[2023-10-18] MEDS ORDERED: DEXAMETHASONE SOD PHOSPHATE 10MG/ML 1ML VIAL ONE (10:34)
[2023-10-18] MEDS: CEFTRIAXONE 1G VIAL IV ONE (10:45)
[2023-10-18] MEDS: BOTULINUM TOXIN TYPE A 100 UNITS/VIAL INJ ONE (10:48)
[2023-10-18] MEDS: DEXTROSE 50%-WATER 50 ML DISP.SYRIN IV ONE (11:29)
== END 2023-10-18 13:00 | disposition home or self-care (01) ==
LOC: DAH 07:32
PROVIDERS: ATTEND Urology
DX: N39.46 Mixed incontinence (principal); I25.2 Old myocardial infarction; I10 Essential (primary) hypertension; E11.9 Type 2 diabetes mellitus without complications; E03.9 Hypothyroidism, unspecified; K21.9 Gastro-esophageal reflux disease without esophagitis; M19.90 Unspecified osteoarthritis, unspecified site; E66.9 Obesity, unspecified; Z68.36 Body mass index [BMI] 36.0-36.9, adult; Z82.5 Family history of asthma and other chronic lower respiratory diseases; Z83.3 Family history of diabetes mellitus; Z83.79 Family history of other diseases of the digestive system; Z82.49 Family history of ischemic heart disease and other diseases of the circulatory system; Z82.3 Family history of stroke; Z80.59 Family history of malignant neoplasm of other urinary tract organ; Z79.82 Long term (current) use of aspirin; Z79.84 Long term (current) use of oral hypoglycemic drugs; Z79.899 Other long term (current) drug therapy
CPT/HCPCS: 80048; 85025; 87077; 87088; 87186; 81001; 36415; 93005; 52287; 82948 ×3; A6260; A4663; J7120; C1758; J3490; J3010; J1100; J7030; J7070; J2001; J0696 ×2; J2704; J2405; J0585 ×2; A4215 ×2; A4223; A4222; A4221; A4600

== ENCOUNTER → 2024-04-07 | Outpatient (CLI) | payer OTHER, MEDICARE ==
[~2024-04-07] MED LIST changes: -BOTULINUM TOXIN TYPE A 100 UNITS/VIAL INJ ONE; -ROSU20TA73 PO; +ROSU20TA98 PO
[2024-04-07 12:38] LABS: ALBUMIN 3.4 g/dL (3.5-5.0); BILIRUBIN,TOTAL 0.3 mg/dL (0.2-1.0); POTASSIUM 4.4 mmol/L (3.5-5.1); TOTAL PROTEIN, SERUM 7.7 g/dL (6.0-8.3)
== END | disposition home or self-care (01) ==
LOC: LAB 09:06
PROVIDERS: ATTEND Student in an Organized Health Care Education/Training Program
DX: I10 Essential (primary) hypertension (principal)
CPT/HCPCS: 36415; 80053; 80061

== ENCOUNTER → 2024-04-16 | Outpatient (CLI) | payer OTHER, MEDICARE ==
[~2024-04-16] MED LIST changes: +IOHEXOL 350 MG/ML 100ML INFUS..BTL IV ONE; +metoPROLOL tartRATE 1 MG/ML 5ML VIAL IV ONE
== END | disposition home or self-care (01) ==
LOC: RAH 06:39
PROVIDERS: ATTEND Student in an Organized Health Care Education/Training Program
DX: I25.10 Atherosclerotic heart disease of native coronary artery without angina pectoris (principal); R07.9 Chest pain, unspecified; M47.815 Spondylosis without myelopathy or radiculopathy, thoracolumbar region
CPT/HCPCS: 75574; J3490; Q9967

== ENCOUNTER → 2024-06-05 | Outpatient (CLI) | payer OTHER, MEDICARE ==
[~2024-06-05] VITALS: Ht 154.9 cm; Wt 88.0 kg
[~2024-06-05] MED LIST changes: +ALBUTEROL IH; +CALC1TAB2 PO; +FAMO40TA7 PO; -IOHEXOL 350 MG/ML 100ML INFUS..BTL IV ONE; +LEVO5TAB13 PO; +LISI2.5T13 PO; +SEMA2PEN SQ; -metoPROLOL tartRATE 1 MG/ML 5ML VIAL IV ONE
--- NOTE | 2024-06-05 09:17 | EKG ---
[facility] Test Date: 2024-06-05 Test Time: 10:10:43 Pat Name: LAZ MUELLER Department: [facility] Room: Gender: F Supervisor [employer]: [id number] : 1955 Requested By: ZHAO YUNG Order Number: [id number] Reading MD: Popeye Clark Measurements Intervals [place] Rate: 71 P: 264 [place]: 110 QRS: -42 QRSD: 105 T: 74 QT: 450 QTc: 489 Interpretive Statements Ectopic atrial rhythm Left anterior fascicular block Low voltage, precordial leads Probable LVH with secondary repol abnrm Anterior Q waves, possibly due to LVH Compared to ECG 10/12/2023 11:40:56 Ectopic atrial rhythm now present Low QRS voltage now present Q waves now present Sinus rhythm no longer present Electronically Signed On 06-05-2024 14:03:16 BACK WEDGER by Popeye Clark Please click the below link to view image of tracing.
[2024-06-05 09:48] VITALS: BP 110/51; PULSE 74; RESP 16; TEMP 97.2
[2024-06-05 09:54] LABS: BASOPHILS # (AUTO) 0.07 K/uL (0.00-0.20); BASOPHILS % (AUTO) 0.9 % (0.0-5.0); EOSINOPHILS # (AUTO) 0.16 K/uL (0.00-0.70); IMMATURE GRANULOCYTE ABSOLUTE 0.04 K/uL (0-1); LYMPHOCYTES # (AUTO) 2.8 K/uL (1.0-4.8); MEAN CORPUSCULAR HEMOGLOBIN 29.2 pg (27.0-33.0); MEAN CORPUSCULAR HGB CONC 31.8 g/dL (32.0-36.0); MEAN CORPUSCULAR VOLUME 91.8 fL (79-99); MONOCYTES # (AUTO) 0.6 K/uL (0.1-1.0); NEUTROPHILS # (AUTO) 4.5 K/uL (1.8-7.7); NEUTROPHILS % (AUTO) 55.6 % (40.0-77.0); PLATELET COUNT (AUTO) 203 K/uL (130-400); RED BLOOD CELL COUNT(AUTO) 4.25 MIL/uL (4.00-5.50); RED CELL DISTRIBUTION WIDTH 16.5 % (11.0-15.5); WHITE BLOOD COUNT (AUTO) 8.1 K/uL (4.8-10.8)
[2024-06-05 10:13] LABS: CREATININE 0.8 mg/dL (0.5-1.0); POTASSIUM 4.7 mmol/L (3.5-5.1)
[2024-06-05 10:16] LABS: INR 0.95 (0.85-1.15); PROTHROMBIN TIME 10.3 SEC (9.6-11.6)
[2024-06-05 10:17] LABS: PARTIAL THROMBOPLASTIN TIME 27.9 SEC (26.3-35.5)
[2024-06-05 10:24] LABS: B-TYPE NATRIURETIC PEPTIDE 64 pg/mL (0-100)
--- NOTE | 2024-06-05 12:02 | HMCIMG ---
CHEST 1VW REASON: PRE OP COMPARISON: 06/27/2022 FINDINGS: Single view of the chest was obtained. Lungs are clear. Heart size is normal. There is no pulmonary vascular congestion. Mediastinum and bony thorax appear unremarkable. Surgical changes are again noted in the anterior chest wall. IMPRESSION: 1. No acute finding, no change.
== END | disposition home or self-care (01) ==
LOC: EDSTATUS 10:00 → DAH 10:00
PROVIDERS: ATTEND Student in an Organized Health Care Education/Training Program
DX: Z01.818 Encounter for other preprocedural examination (principal); I25.10 Atherosclerotic heart disease of native coronary artery without angina pectoris; I44.4 Left anterior fascicular block; R94.31 Abnormal electrocardiogram [ECG] [EKG]; Z95.5 Presence of coronary angioplasty implant and graft; Z79.899 Other long term (current) drug therapy; Z98.890 Other specified postprocedural states; I48.0 Paroxysmal atrial fibrillation
CPT/HCPCS: 36415; 71045; 80048; 83880; 85025; 85610; 85730; 93005

== ENCOUNTER 2024-07-03 08:39 | Day surgery (SDC) | payer OTHER, MEDICARE ==
[2024-07-01 10:00] LABS: BASOPHILS # (AUTO) 0.03 K/uL (0.00-0.20); BASOPHILS % (AUTO) 0.3 % (0.0-5.0); HEMATOCRIT 42.7 % (36-48); IMMATURE GRANULOCYTE ABSOLUTE 0.08 K/uL (0-1); LYMPHOCYTES # (AUTO) 1.9 K/uL (1.0-4.8); LYMPHOCYTES % (AUTO) 16.1 % (21.0-51.0); MEAN CORPUSCULAR HEMOGLOBIN 29.6 pg (27.0-33.0); MEAN CORPUSCULAR VOLUME 89.7 fL (79-99); MONOCYTES # (AUTO) 0.6 K/uL (0.1-1.0); MONOCYTES % (AUTO) 5.1 % (3.0-13.0); NEUTROPHILS # (AUTO) 9.3 K/uL (1.8-7.7); NEUTROPHILS % (AUTO) 77.8 % (40.0-77.0); PLATELET COUNT (AUTO) 262 K/uL (130-400); RED BLOOD CELL COUNT(AUTO) 4.76 MIL/uL (4.00-5.50); RED CELL DISTRIBUTION WIDTH 15.4 % (11.0-15.5)
[2024-07-01 10:01] VITALS: BP 165/84; PULSE 91; RESP 18; TEMP 97.2
[2024-07-01 10:11] LABS: INR 0.96 (0.85-1.15); PROTHROMBIN TIME 10.8 SEC (9.6-11.6)
[2024-07-01 10:12] LABS: PARTIAL THROMBOPLASTIN TIME 27.7 SEC (26.3-35.5)
[2024-07-01 10:18] LABS: B-TYPE NATRIURETIC PEPTIDE 54 pg/mL (0-100)
[2024-07-01 10:20] LABS: CREATININE 1.2 mg/dL (0.5-1.0); POTASSIUM 4.3 mmol/L (3.5-5.1)
--- NOTE | 2024-07-01 10:26 | EKG ---
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 : 1955 Requested By: ZHAO YUNG Order Number: [id number] Reading MD: Maureen Ferrari Measurements Intervals [place] Rate: 82 P: 264 ID: 140 QRS: -45 QRSD: 105 T: 135 QT: 406 QTc: 475 Interpretive Statements Ectopic atrial rhythm Left anterior fascicular block Probable anterior infarct, age indeterminate Compared to ECG 06/05/2024 10:10:43 Myocardial infarct finding now present Left ventricular hypertrophy no longer present Q waves no longer present Electronically Signed On 07-02-2024 08:09:57 [employer] SAL[employer] REPRESENTATIVE by Maureen Ferrari Please click the below link to view image of tracing.
--- NOTE | 2024-07-01 12:30 | HMCIMG ---
CHEST 1VW HISTORY: Preop COMPARISON: 06/05/2024 FINDINGS: A frontal projection of the chest was obtained. Calcified granuloma is seen in the right midlung. No acute pulmonary infiltrates is seen. Poststernotomy changes are seen. The heart is enlarged. Degenerative changes of the thoracolumbar spine are present. Tortuosity of aorta is seen. No evidence of aortic calcification is seen. IMPRESSION: 1. No acute pulmonary infiltrate is seen.
--- NOTE | 2024-07-02 08:55 | NUR ---
REPORT REPORTED WBC TO DR Mikki YUNG. OK TO PROCEED
[2024-07-03] VITALS (9 sets, daily range): BP systolic 99–127; BP diastolic 55–72; PULSE 67–80; RESP 14–18; TEMP 97.4–97.9
[~2024-07-03] VITALS: Ht 154.9 cm; Wt 86.2 kg
[~2024-07-03 08:39] MED LIST changes: -CETI10TA57 PO; -LISI5TAB21 PO; -NITR100C4 PO; -vitamin b12 PO
[2024-07-03] MEDS ORDERED: 0.9%NACL 1000ML 1,000 ML IV SCH ×2 (10:00→13:00)
[2024-07-03] MEDS ORDERED: VERAPAMIL HCL 2.5 MG/ML VIAL ONE (11:33)
[2024-07-03] MEDS ORDERED: FENTanyl CITRate PF 50 MCG/1 ML 2ML VIAL ONE (11:33)
[2024-07-03] MEDS ORDERED: IOHEXOL 350 MG/ML 100ML INFUS..BTL IV ONE (11:33)
[2024-07-03] MEDS ORDERED: LIDOCAINE HCL 400MG/20ML VIAL ONE (11:33)
[2024-07-03] MEDS ORDERED: HEParin 10,000 UNIT/10ML (1,000 UNIT/ML) VIAL ONE (11:33)
[2024-07-03] MEDS ORDERED: MIDAZOLAM HCL 1 MG/ML 2ML VIAL ONE ×2 (11:33→12:09)
[2024-07-03] MEDS ORDERED: HEParin-NS 1,000 UNIT/500 ML 1,000 ML IV ONE (11:34)
[2024-07-03] MEDS ORDERED: NITROGLYCERIN 50MG VIAL ONE (11:34)
[2024-07-03] MEDS ORDERED: ondanSETRON 4MG INJ ONE (11:50)
--- NOTE | 2024-07-03 12:52 | PRN ---
PROCEDURE REPORT DATE OF PROCEDURE: Jul 03, 2024 [employer] LABORER/DESIGNER: [ Pam Gauthier MD] PROCEDURE PERFORMED: Conscious sedation Ultrasound guided right radial artery access Selective left coronary artery angiogram Selective right coronary artery angiogram Left heart catheterization SVG-Diag1 Angiogram TR band 13 alesha over right radial artery INDICATION: Abnormal CCTA DESCRIPTION OF PROCEDURE: After informed consent was obtained, the patient was prepped and draped in the usual sterile fashion. A 6 British arterial sheath was inserted in the right radial artery using ultrasound guidance with first pass wall puncture. The arterial sheath was aspirated and flushed. A 6 British JL 3.5 was then advanced to the ascending aorta over an exchange length J-tip guidewire, was aspirated and flushed, and was used for selective coronary angiograms in multiple obliquities. A JR-4 was advanced in a similar fashion to the ascending aorta over the J-tipped guidewire and was used for selective right coronary angiograms in multiple oblique views with findings as outlined below. The JR-4 catheter advanced into the LV and pressures were obtained with a pull-back across the aortic valve. We then used the Jr4 to engage the SVG-D1 graft followed by multiple angiographic images. Following review of the images the decion was to terminate procedure. A TR band was placed over right radial artery. FLUOROSCOPY TIME: 4.7 min LEFT HEART HEMODYNAMICS: LVEDP 8 mm Hg and no gradient Ao CORONARY ANGIOGRAM: LEFT MAIN: Small caliber, Patent and 0% stenosis. Gives rise to LCx and LAD. LEFT ANTERIOR DESCENDING: Large vessel giving rise to two Diagonal branches. There is a patent proximal LAD stent with diffuse calcified nonobstructive disease with GENOVEVA 3 flow. D1 severely calcified proximally with competitive flow via SVG LEFT CIRCUMFLEX: Small, and gives rise to an OM branches. 90% distal stenosis (1.5-2mm vessel) RIGHT CORONARY ARTERY: Large, dominant vessel giving rise to PDA and PL branches. Diffusely and heavily calcified with no obstructive disease. SVG-D1 widely patent (BUCKLEY and SVG-OM not studied as known to be occluded from prior angiograms) HEMOSTASIS: TR band 12 alesha over right radial artery INTERVENTIONS: None. COMPLICATIONS: None FINDINGS: Normal coronary anatomy with patent SVG-D1 graft OM1 distal stenosis with severe stenosis but is a small caliber vessel ESTIMATED BLOOD LOSS: 5 cc RECOMMENDATIONS/INSTRUCTIONS: Aggressive risk factor modification and optimization of GDT CONTRAST DELIVERED TO PATIENT (mL): 80cc MD AGA Cadet JAMES R MD Jul 03, 2024 12:52
[2024-07-03] MEDS ORDERED: GLUCAGON 1MG KIT 1 MG ML IM PRN (13:00)
[2024-07-03] MEDS ORDERED: DEXTROSE 50%-WATER 50 ML DISP.SYRIN IV PRN (13:00)
== END 2024-07-03 16:35 | disposition home or self-care (01) ==
LOC: DAH 08:39
PROVIDERS: ATTEND Student in an Organized Health Care Education/Training Program
DX: R93.1 Abnormal findings on diagnostic imaging of heart and coronary circulation (principal); I25.118 Atherosclerotic heart disease of native coronary artery with other forms of angina pectoris; R94.31 Abnormal electrocardiogram [ECG] [EKG]; E78.2 Mixed hyperlipidemia; E11.8 Type 2 diabetes mellitus with unspecified complications; R07.89 Other chest pain; I10 Essential (primary) hypertension; I25.2 Old myocardial infarction; G47.33 Obstructive sleep apnea (adult) (pediatric); I44.4 Left anterior fascicular block; Z79.01 Long term (current) use of anticoagulants; Z95.1 Presence of aortocoronary bypass graft; Z95.5 Presence of coronary angioplasty implant and graft; Z86.73 Personal history of transient ischemic attack (TIA), and cerebral infarction without residual deficits; Z79.82 Long term (current) use of aspirin; Z98.890 Other specified postprocedural states; Z79.84 Long term (current) use of oral hypoglycemic drugs; Z79.899 Other long term (current) drug therapy
CPT/HCPCS: 80048; 83880; 85025; 85610; 85730; 71045; 93005; 93459; 82948; 36415; C1769; C1894; A4649; J3010; J3490 ×3; J1644 ×2; J2250 ×2; J2405; Q9967; A4215; A4335; A4222; A4221; A4663; A4216; A4606; Q9965; A4223 ×3; A4554; 96360; 96361; 99156; 99157